=== PATIENT | female | born 1980 | race Caucasian/White ===

== ENCOUNTER 2024-04-21 15:57 | Observation (INO) ==
--- NOTE | 2024-04-21 16:38 | ED Triage Note ---
Date of Service April 21, 2024 Provider in Triage Author: Justin Lomax. History of Present Illness This patient was briefly evaluated while in triage. An abbreviated physical exam was performed. This patient is a 43-year-old Female who presents to the ED for evaluation of 5 months of left upper abdominal pain, she had blood in her stool and passed a blood clot. Night sweats. Abd pelvis CT last year. Physical Exam CONSTITUTIONAL: uncomfortable appearing, nontoxic SKIN: pink, warm, dry CARDIAC: regular rate and rhythm RESPIRATORY: in no respiratory distress, lungs clear to auscultation ABDOMEN: diffuse tenderness worse on left than right Initial orders for labs and / or imaging were placed and patient was placed in the waiting area until a bed is available. Please see further documentation for the full ED course. Patient agreeable with premedication for hives to IV contrast
[2024-04-21] MEDS: SODIUM CHLORIDE 0.9% 1,000 ML IV STA (18:21)
[2024-04-21] MEDS: methylPREDNISolone 125 MG/2 ML VIAL IV ONE (18:21)
[2024-04-21] MEDS: diphenhydrAMINE 50 MG/ML VIAL IV ONE (18:21)
[2024-04-21 18:27] LABS: Basophils # (auto) 0.02 K/uL (0.00-0.20); Basophils % (auto) 0.5 %; Eosinophils # (auto) 0.28 K/uL (0.00-0.50); Eosinophils % (auto) 7.3 %; Hematocrit (blood only) 38.4 % (37.0-47.0); Hemoglobin 12.8 g/dl (12.0-16.0); Lymphocytes # (auto) 1.44 K/uL (1.20-3.40); Lymphocytes % (auto) 37.3 %; Mean Corpuscular Hemoglobin 32.6 pg (25.0-34.0); Mean Corpuscular Hgb Conc 33.3 g/dL (32.0-36.0); Mean Corpuscular Volume 97.7 fL (80.0-100.0); Mean Platelet Volume 9.7 fL (9.4-12.4); Monocytes # (auto) 0.29 K/uL (0.11-0.59); Monocytes % (auto) 7.5 %; Neutrophils # (auto) 1.83 K/uL (1.40-6.50); Neutrophils % (auto) 47.4 %; Platelet Count 158 K/uL (130-400); RDW Coefficient of Variation 12.7 % (11.5-14.5); RDW Standard Deviation 45.9 fL (36.4-46.3); Red Blood Count 3.93 M/uL (4.20-5.40); White Blood Count 3.86 K/ul (4.8-10.8)
[2024-04-21 18:32] LABS: Appearance Urine Clear (Clear); Bilirubin Urine Negative (Negative); Blood Urine Negative (Negative); Color Urine Yellow; Glucose Urine UA Negative (Negative); Ketones Urine Negative (Negative); Leukocyte Esterase Urine Negative (Negative); Nitrite Urine Negative (Negative); Protein Urine Negative (Negative); Specific Gravity Urine 1.012 (1.000-1.030); Urobilinogen Urine Negative (Negative)
[2024-04-21 18:43] LABS: Alanine Aminotransferase 16 U/L (7-52); Albumin Globulin Ratio 1.6 (0.9-2); Albumin Level 3.9 gm/dl (3.4-5.0); Alkaline Phosphatase 59 U/L (34-104); Anion Gap 2 (3-11); Aspartate Aminotransferase 18 U/L (13-39); Bilirubin,Total 0.3 mg/dl (0.2-1.0); Blood Urea Nitrogen 14 mg/dl (6-23); Carbon Dioxide 28 mmol/L (21-32); Chloride 109 mmol/L (98-107); Est GFR (African American) 131.4 ml/min; Est GFR (Non-African American) 113.4 ml/min; Globulin 2.5 gm/dl (2.5-4.0); Glucose 90 mg/dl (70-99(Fasting)); Lipase 25 U/L (11-82); Sodium 139 mmol/L (136-145); Total Protein 6.4 gm/dl (6.0-8.3)
[2024-04-21] MEDS: OPTIRAY 320 100ml IV ONE (19:15)
[2024-04-21] MEDS: SODIUM CHLORIDE 0.9% 1,000 ML IV ONE (19:33)
[2024-04-21] MEDS: PROCHLORPERAZINE 1 ML IV ONE (19:34)
[2024-04-21] MEDS: fentaNYL citrate PF 100 MCG/2 ML VIAL IV STA (19:38)
--- NOTE | 2024-04-21 19:44 | Emergency Department Note ---
Impression & Plan Abdominal pain, AMS (altered mental status) ED Provider Note HISTORY OF PRESENT ILLNESS: Patient is a 43-year-old female presenting with left flank pain. Patient reports that she has been having abdominal pain for the last 6 months. Reports has been worse in the last 3 months. States that today she had an episode of having a bowel movement in which she passed a very large clot. Reports that she then had bright red blood in her stool afterwards. She reports she supposed to follow-up with gastroenterology and was supposed to obtain a endoscope and colonoscopy in September 2023, but she "did not get around to doing it." She states she is been feeling very rundown. Reports having night sweats for the last 6 months. Denies any nausea or vomiting. Denies any notable fevers. Denies any dysuria or hematuria. ROS: as above PHYSICAL EXAM: Constitutional: Patient appears in no acute distress. HENT: Head: Normocephalic and atraumatic. Eyes: EOMI, PERRL Mouth/Throat: Mucous membranes moist. Neck: Trachea midline. Neck supple. Cardiovascular: RRR, No murmurs, rubs or gallops. Intact distal pulses. Pulmonary/Chest: No respiratory distress. Breath sounds clear and equal bilaterally. No wheezes or rales. Abdominal: Abdomen soft, no tenderness, rebound or guarding. Diffuse tenderness to palpation Musculoskeletal: No edema, tenderness or deformity noted. Skin: Warm and dry. No rash, erythema, pallor or cyanosis Psychiatric: Appropriate mood and affect for situation. Neurological: Alert and keenly responsive. CN II-XII grossly intact, moving all extremities equally and fully. MDM: - Vitals signs showed hypotension - History obtained via patient. History as above. - Chronic conditions affecting care: GERD; bipolar 1 disorder - Differential diagnoses include, but are not limited to: colitis; diverticulitis; bowel obstruction; UTI; ureteral stone - Order placed for continuous cardiac monitoring. At this time, monitor showed rate of 80 bpm with normal sinus rhythm, per my interpretation. - External medical records reviewed. Colonoscopy dated 05/31/2021 was reviewed. Patient had nonbleeding internal hemorrhoids at that time. - EKG interpreted by myself showed normal sinus rhythm. Rate 69 bpm. QT 378. No acute ischemic changes - Laboratory workup interpreted by myself showed leukopenia (WBC 3.86); normal electrolytes; normal lipase; negative Lyme disease; normal liver function - UA negative for infection - UDS positive for amphetamines and benzos. - Patient initially given 1L NS, 50 mg IV benadryl and 40 mg IV solumedrol for her IV contrast allergy. - CT abdomen/pelvis with IV contrast noted to have fluid-filled loops of small bowel within the pelvis consistent with an enteritis. - Patient given 5 mg IV compazine and 50 mcg IV fentanyl for nausea and pain control. - On reassessment, patient is hypotensive and lethargic. Pupils appear pinpoint on examination. Her fentanyl dosing was over 2 hours ago on reassessment. Her pupils are pinpoint. She is given 0.4 mg IV Narcan with slight improvement in her mental status - On reassessment at 2215, patient still very lethargic and difficult to arouse. She has pinpoint pupils again and was given another 0.4 mg of Narcan. Patient has not had any visitors in the emergency department who could be giving her anything. Unclear reason why she is so lethargic and difficult to arouse. Given that she is still hypotensive and confused, will admit to hospitalist service. - Discussion was had with watch caser about patient's case and need for admission - Hospitalist, Dr. Jain, consulted for admission - Patient admitted to [facility] hospitalist service for further evaluation and management. ASSESSMENT AND PLAN: Diagnosis: Abdominal pain; altered mental status Plan: admit Past Med/Surg History Problem List (Updated 04/21/24 @ 22:19 by Joelle Perales MD) AMS (altered mental status) (Acute) Abdominal pain (Acute) COVID-19 (Acute) Bipolar 1 disorder Hidradenitis suppurativa Mass in rectum Left sided abdominal pain Rectal bleeding GERD (gastroesophageal reflux disease) Encounter for pre-operative examination Dysphagia Medical History Fibromyalgia Intermittent urinary incontinence Bulging lumbar disc History of colon polyps Dysphagia Poor appetite Weight gain 15 lb wt gain over 1.5 mo Bloating IBS (irritable bowel syndrome) Beth's thyroiditis ADD (attention deficit disorder) PTSD (post-traumatic stress disorder) Bipolar disorder Anxiety and depression Migraines History of palpitations no hx cardiac workup; states "have not had in a while" Lung nodule incidental finding; scheduled to see Rambo Gutierrez 07/28/21 Surgical History History of wisdom tooth extraction History of cholecystectomy History of appendectomy History of esophagogastroduodenoscopy (EGD) History of colonoscopy History of unilateral salpingectomy Left side 2019 and Right side 2019 History of hysterectomy Family History Other No family history of adverse response to anesthesia Social History Smoking Status: Current every day smoker Tobacco Type: Cigarettes Second Hand Exposure: No; Do You Dip or Chew Tobacco: No; Hx Alcohol Use: No Hx Substance Use: No Preferred Language: Uzbek Communication Ability: Effective Billet Checker Required: No Beliefs That Will Affect Care: None Current Living Situation: Family and Significant Other Current Living Situation Comment: Lives with fiance and 4 daughters Feels Safe at Home: Yes Assistive Devices: Glasses Allergies Allergies Allergy/AdvReac Type Severity Reaction Status Date / Time ketorolac [From Toradol] Allergy Severe Rash/ Verified 04/26/23 18:02 Stomach Cramps Iodinated Contrast Media Allergy Intermediate Hives Unverified 04/26/23 18:02 levofloxacin [From Levaquin] Allergy Intermediate Rash/ Verified 04/26/23 18:02 Itching vancomycin Allergy Intermediate Rash/ Verified 04/26/23 18:02 Itching ondansetron [From Zofran] AdvReac Severe Stomach Verified 04/26/23 18:02 Cramps cephalexin [From Keflex] AdvReac Intermediate "Pain Verified 04/26/23 18:02 Throughout Whole Body" prednisone AdvReac Intermediate "Heart Verified 04/26/23 18:02 Racing" sulfamethoxazole AdvReac Intermediate "Pain Verified 04/26/23 18:02 [From Bactrim] Throughout Whole Body" trimethoprim [From Bactrim] AdvReac Intermediate "Pain Verified 04/26/23 18:02 Throughout Whole Body" Home Meds Home Medications Medication Instructions Recorded Confirmed cholecalciferol (vitamin D3) 125 125 mcg PO QAM 04/18/21 04/26/23 mcg (5,000 unit) tablet (Vitamin D3) ibuprofen 200 mg tablet 600 mg PO Q6H PRN Pain 04/18/21 04/26/23 liothyronine 5 mcg tablet 5 mcg PO QAM 04/18/21 04/26/23 methylphenidate HCl 20 mg tablet 20 mg PO TID 05/25/21 04/26/23 zolpidem 10 mg tablet (Ambien) 10 mg PO HS 05/25/21 04/26/23 linaclotide 145 mcg capsule 145 mcg PO QAM PRN IBS 07/27/21 04/26/23 (Linzess) pantoprazole 40 mg tablet,delayed 40 mg PO BID PRN Acid Reflux 12/14/21 04/26/23 release alprazolam 1 mg tablet 1 mg PO TID PRN Anxiety 04/26/23 04/26/23 levothyroxine 125 mcg tablet 125 mcg PO QAM 04/26/23 04/26/23 spironolactone 50 mg tablet 50 mg PO HS 04/26/23 04/26/23 valacyclovir 1 gram tablet 1,000 mg PO BID 04/26/23 04/21/24 Results & Data (ED) Vital Signs Vital Signs - 24 hr 04/21/24 16:34 04/21/24 18:13 04/21/24 18:13 Temperature 36.6 C Temperature Source Temporal Artery Scan Pulse Rate 89 77 Pulse Rate [Apical] 77 Pulse Rhythm Regular Pulse Strength Normal Respiratory Rate 18 12 12 Respiratory Effort / Characteristics Non-Labored Respiratory Depth Normal Respiratory Pattern Regular Blood Pressure 110/77 Blood Pressure [Right Arm] 98/69 L Blood Pressure Mean 88 Blood Pressure Mean [Right Arm] 78 Pulse Oximetry 98 100 100 Oxygen Delivery Method Room Air Room Air Room Air Sepsis Recent Fever Within 48 Hours No Sepsis New/Unexplained Change in Mental Status No Sepsis Action Taken by Nursing No Action Required 04/21/24 18:14 04/21/24 21:59 Temperature Temperature Source Pulse Rate 73 80 Pulse Rate [Apical] Pulse Rhythm Pulse Strength Respiratory Rate Respiratory Effort / Characteristics Respiratory Depth Respiratory Pattern Blood Pressure Blood Pressure [Right Arm] Blood Pressure Mean Blood Pressure Mean [Right Arm] Pulse Oximetry Oxygen Delivery Method Sepsis Recent Fever Within 48 Hours Sepsis New/Unexplained Change in Mental Status Sepsis Action Taken by Nursing Laboratory Data 04/21/24 18:00 04/21/24 18:00 Lab Results 04/21/24 04/21/24 04/21/24 Range/Units 18:00 18:20 20:28 WBC 3.86 L (4.8-10.8) K/ul RBC 3.93 L (4.20-5.40) M/uL Hgb 12.8 (12.0-16.0) g/dl Hct 38.4 (37.0-47.0) % MCV 97.7 (80.0-100.0) fL MCH 32.6 (25.0-34.0) pg MCHC 33.3 (32.0-36.0) g/dL RDW Std Deviation 45.9 (36.4-46.3) fL RDW Coeff of Dorothy 12.7 (11.5-14.5) % Plt Count 158 (130-400) K/uL MPV 9.7 (9.4-12.4) fL Immature Gran % (Auto) 0.0 % Neut % (Auto) 47.4 % Lymph % (Auto) 37.3 % [place] % (Auto) 7.5 % Eos % (Auto) 7.3 % Baso % (Auto) 0.5 % Neut # (Auto) 1.83 (1.40-6.50) K/uL Lymph # (Auto) 1.44 (1.20-3.40) K/uL [place] # (Auto) 0.29 (0.11-0.59) K/uL Eos # (Auto) 0.28 (0.00-0.50) K/uL Baso # (Auto) 0.02 (0.00-0.20) K/uL Immature Gran # (Auto) 0.00 L (0.01-0.20) K/uL Sodium 139 (136-145) mmol/L Potassium 4.0 (3.5-5.1) mmol/L Chloride 109 H (98-107) mmol/L Carbon Dioxide 28 (21-32) mmol/L Anion Gap 2 L (3-11) BUN 14 (6-23) mg/dl Creatinine 0.56 L (0.6-1.2) mg/dl Est Cr Clr Drug Dosing Not Reportable Est GFR ( Amer) 131.4 ml/min Est GFR (Non-Af Amer) 113.4 ml/min BUN/Creatinine Ratio 25.0 H (10-20) Glucose 90 (70-99(Fasting)) mg/dl POC Glucose 94 (70-99) mg/dl Calcium 9.0 (8.6-10.3) mg/dl Total Bilirubin 0.3 (0.2-1.0) mg/dl AST 18 (13-39) U/L ALT 16 (7-52) U/L Alkaline Phosphatase 59 (34-104) U/L Total Protein 6.4 (6.0-8.3) gm/dl Albumin 3.9 (3.4-5.0) gm/dl Globulin 2.5 (2.5-4.0) gm/dl Albumin/Globulin Ratio 1.6 (0.9-2) Lipase 25 (11-82) U/L Urine Color Yellow Urine Appearance Clear (Clear) Urine pH 6.0 (4.5-7.5) Ur Specific Alfred 1.012 (1.000-1.030) Urine Protein Negative (Negative) Urine Glucose (UA) Negative (Negative) Urine Ketones Negative (Negative) Urine Blood Negative (Negative) Urine Nitrite Negative (Negative) Urine Bilirubin Negative (Negative) Urine Urobilinogen Negative (Negative) Ur Leukocyte Esterase Negative (Negative) Urine Opiates Screen Neg (Neg) Ur Methadone, Qual Neg (Neg) Urine Fentanyl Screen Neg (Neg) Urine Barbiturates Neg (Neg) Ur Phencyclidine (PCP) Neg (Neg) U Amphetamin/Meth Scrn Pos H (Neg) MDMA (Ecstasy) Screen Neg (Neg) U Benzodiazepines Scrn Pos H (Neg) Ur Cocaine Metabolite Neg (Neg) U Marijuana (THC) Screen Neg (Neg) Lyme Disease Screen Negative (Negative) Administered Medications Discontinued Medications Diphenhydramine HCl (Diphenhydramine 50 Mg/Ml Vial) 50 mg IV ONE ONE Stop: 04/21/24 16:44 Last Admin: 04/21/24 18:21 Dose: 50 mg Documented By: BRANT Fentanyl Citrate (Fentanyl Citrate Pf 100 Mcg/2 Ml Vial) 50 mcg IV NOW STA Stop: 04/21/24 18:52 Last Admin: 04/21/24 19:38 Dose: 50 mcg Documented By: AICHA Sodium Chloride (Nss) 1,000 mls @ 999 mls/hr IV .Q1H1M STA Stop: 04/21/24 17:43 Last Infusion: 04/21/24 19:25 Dose: Infused Documented By: Admin: 04/21/24 18:21 Dose: 999 mls/hr Documented By: BRANT Sodium Chloride (Nss) 1,000 mls @ 999 mls/hr IV .Q1H1M ONE Stop: 04/21/24 19:51 Last Infusion: 04/21/24 21:57 Dose: Infused Documented By: Admin: 04/21/24 19:33 Dose: 999 mls/hr Documented By: AICHA Prochlorperazine (Compazine) 1 mls @ 1 mls/min IV ONE ONE Stop: 04/21/24 18:53 Last Admin: 04/21/24 19:34 Dose: 1 mls/min Documented By: AICHA Ioversol (Optiray 320 100ml) 91 ml IV ONCE ONE Stop: 04/21/24 19:15 Last Admin: 04/21/24 19:15 Dose: 91 ml Documented By: NOEL Methylprednisolone (Methylprednisolone 125 Mg/2 Ml Vial) 40 mg IV NOW ONE Stop: 04/21/24 16:44 Last Admin: 04/21/24 18:21 Dose: 40 mg Documented By: BRANT Naloxone HCl (Naloxone Hcl 0.4 Mg/1 Ml Vial/Carp) 0.4 mg IV NOW STA Stop: 04/21/24 20:14 Last Admin: 04/21/24 20:16 Dose: 0.4 mg Documented By: NIMA Naloxone HCl (Naloxone Hcl 0.4 Mg/1 Ml Vial/Carp) 0.4 mg IV NOW STA Stop: 04/21/24 22:17 Last Admin: 04/21/24 22:19 Dose: 0.4 mg Documented By: NIMA Imaging Data Radiologist's Impression: Abdomen/Pelvis CT 04/21/24 16:41 Exam(s): CT ABDOMEN + PELVIS With Contrast IV Amt: 91ml optiray 320 EXAM: CT Abdomen and Pelvis With Intravenous Contrast CLINICAL HISTORY: Reason for exam: left upper abd pain passing blood clots per rectum. TECHNIQUE: Axial computed tomography images of the abdomen and pelvis with intravenous contrast. CTDI is 12 mGy and DLP is 585 mGy-cm. Automated exposure control was utilized for the study. A dose lowering technique was utilized adhering to the principles of ALARA. CONTRAST: Patient received 91ml optiray 320 of IV contrast COMPARISON: 06/03/2023 FINDINGS: Lung bases: Unremarkable. No mass. No consolidation. ABDOMEN: Liver: Moderate periportal edema. Gallbladder and bile ducts: Postoperative changes prior cholecystectomy. No ductal dilation. Pancreas: Unremarkable. No mass. No ductal dilation. Spleen: Splenomegaly. Adrenals: Unremarkable. No mass. Kidneys and ureters: Both kidneys opacify with and excrete contrast in a normal symmetric fashion. . Stomach and bowel: There is fluid-filled loops of small bowel within the pelvis with hyperemic mural enhancement. No obstruction. No mucosal thickening. PELVIS: Appendix: No findings to suggest acute appendicitis. Bladder: Unremarkable. No mass. Reproductive: Unremarkable as visualized. ABDOMEN and PELVIS: Intraperitoneal space: Unremarkable. No free air. No significant fluid collection. Bones/joints: No acute fracture. No dislocation. Soft tissues: See above. Vasculature: Dilatation of the main portal vein suggesting portal hypertension. Lymph nodes: Unremarkable. No enlarged lymph nodes. IMPRESSION: Fluid-filled loops of small bowel within the pelvis with hyperemic mural enhancement. Findings may is enteritis in the appropriate clinical setting. Electronically signed by: Wallace Rhodes MD 04/21/24 20:36 PM Discharge Plan Visit Data Chief Complaint: Abdominal Pain ED Provider: Joelle Perales Discharge Problem: Abdominal pain, AMS (altered mental status) Forms Stand Alone Forms: Mitro Prescriptions Prescriptions: No Action liothyronine 5 mcg tablet 5 mcg PO QAM Rx Instructions: take with Levothyroxine ibuprofen 200 mg Tablet 600 mg PO Q6H PRN (Reason: Pain) cholecalciferol (vitamin D3) [Vitamin D3] 125 mcg (5,000 unit) Tablet 125 mcg PO QAM methylphenidate HCl 20 mg Tablet 20 mg PO TID zolpidem [Ambien] 10 mg Tablet 10 mg PO HS Linzess 145 mcg capsule 145 mcg PO QAM PRN (Reason: IBS) pantoprazole 40 mg tablet,delayed release (DR/EC) 40 mg PO BID PRN (Reason: Acid Reflux) Rx Instructions: TAKE 1 TABLET BY MOUTH TWICE A DAY alprazolam 1 mg tablet 1 mg PO TID PRN (Reason: Anxiety) valacyclovir 1 gram tablet 1,000 mg PO BID Rx Instructions: ordered 04/18/24 take for 10 days levothyroxine 125 mcg tablet 125 mcg PO QAM spironolactone 50 mg tablet 50 mg PO HS Referrals Referrals: Collin Mercado MD [Primary Care Provider] -
[2024-04-21] MEDS: NALOXONE HCL 0.4 MG/1 ML VIAL/CARP IV STA ×2 (20:16→22:19)
--- NOTE | 2024-04-21 20:36 | CT Scan Report ---
Exam(s): CT ABDOMEN + PELVIS With Contrast IV Amt: 91ml optiray 320 EXAM: CT Abdomen and Pelvis With Intravenous Contrast CLINICAL HISTORY: Reason for exam: left upper abd pain passing blood clots per rectum. TECHNIQUE: Axial computed tomography images of the abdomen and pelvis with intravenous contrast. CTDI is 12 mGy and DLP is 585 mGy-cm. Automated exposure control was utilized for the study. A dose lowering technique was utilized adhering to the principles of ALARA. CONTRAST: Patient received 91ml optiray 320 of IV contrast COMPARISON: 06/03/2023 FINDINGS: Lung bases: Unremarkable. No mass. No consolidation. ABDOMEN: Liver: Moderate periportal edema. Gallbladder and bile ducts: Postoperative changes prior cholecystectomy. No ductal dilation. Pancreas: Unremarkable. No mass. No ductal dilation. Spleen: Splenomegaly. Adrenals: Unremarkable. No mass. Kidneys and ureters: Both kidneys opacify with and excrete contrast in a normal symmetric fashion. . Stomach and bowel: There is fluid-filled loops of small bowel within the pelvis with hyperemic mural enhancement. No obstruction. No mucosal thickening. PELVIS: Appendix: No findings to suggest acute appendicitis. Bladder: Unremarkable. No mass. Reproductive: Unremarkable as visualized. ABDOMEN and PELVIS: Intraperitoneal space: Unremarkable. No free air. No significant fluid collection. Bones/joints: No acute fracture. No dislocation. Soft tissues: See above. Vasculature: Dilatation of the main portal vein suggesting portal hypertension. Lymph nodes: Unremarkable. No enlarged lymph nodes. IMPRESSION: Fluid-filled loops of small bowel within the pelvis with hyperemic mural enhancement. Findings may is enteritis in the appropriate clinical setting. Electronically signed by: Wallace Rhodes MD 04/21/24 20:36 PM
[2024-04-21 22:20] LABS: Amphetamines+Metham, Urine Pos (Neg); Barbiturates, Urine Neg (Neg); Benzodiazepine, Urine Pos (Neg); Cocaine, Urine Neg (Neg); Fentanyl, Urine Neg (Neg); MDMA (Ecstacy), Urine Neg (Neg); Marijuana, Urine Neg (Neg); Methadone, Urine Neg (Neg); Opiate, Urine Neg (Neg); Phencyclidine, Urine Neg (Neg)
--- NOTE | 2024-04-22 01:21 | History & Physical Report ---
Date of Service April 22, 2024 Assessment & Plan (1) AMS (altered mental status): Plan: 43-year-old female with past medical history significant for hypothyroidism, history of nausea vomiting, history of colitis, GERD, history of leukopenia, history of thrombocytopenia, history of anemia, history of anxiety, history of cervical cancer as per records in [facility] comes because of abdominal pain, patient says going on for last 1 year on the left side radiating to the ribs. Seems to got worse lately. In the ER she was given IV Compazine and IV fentanyl and also given IV Benadryl 50 mg and IV Solu-Medrol 40 mg for contrast allergy for CAT scan and patient became lethargic and hypotensive. Pupils were pinpoint. She received couple dose of Narcan. Patient Still somewhat drowsy. When asked she is alert and oriented x 3. States has abdominal pain. States has on and off some chest tightness. Some on and off shortness of breath. states has headache. states has nausea. speaking very low volume and difficult to understand. Goes back to sleep. Could not get much history from the patient currently. As per ER notes patient also complained of blood clot in the stools And also seems having night sweats. Urine drug screen came positive for for methamphetamines and when asked about it patient states she is on Ritalin and denies any drug use. altered mental status most likely drug-induced will check ABG and CT head IV fluids monitoring telemetry abdominal pain seems chronic CT scan showing possible enteritis questionable GI bleed will check stool for Hemoccult n.p.o., IV fluids IV Protonix 40 mg twice daily GI consult in a.m. for further recommendations hypothyroidism continue home meds anxiety needs to get full past medical history when patient is more awake Home meds seems recently started on valacyclovir. DVT prophylaxis SCDs for now disposition telemetry full code History of Present Illness Chief Complaint: abdominal pain and drowsiness Primary Care Provider: Collin Mercado 43-year-old female with past medical history significant for hypothyroidism, history of nausea vomiting, history of colitis, GERD, history of leukopenia, history of thrombocytopenia, history of anemia, history of anxiety, history of cervical cancer as per records in [facility] comes because of abdominal pain, patient says going on for last 1 year on the left side radiating to the ribs. Seems to got worse lately. In the ER she was given IV Compazine and IV fentanyl and also given IV Benadryl 50 mg and IV Solu-Medrol 40 mg for contrast allergy for CAT scan and patient became lethargic and hypotensive. Pupils were pinpoint. She received couple dose of Narcan. Patient Still somewhat drowsy. When asked she is alert and oriented x 3. States has abdominal pain. States has on and off some chest tightness. Some on and off shortness of breath. states has headache. states has nausea. speaking very low volume and difficult to understand. Goes back to sleep. Could not get much history from the patient currently. As per ER notes patient also complained of blood clot in the stools And also seems having night sweats. Urine drug screen came positive for for methamphetamines and when asked about it patient states she is on Ri caty and denies any drug use. Past medical history. As mentioned above. Past surgical history as per [facility]. Endoscopy of bowel pouch with biopsy. Sigmoidoscopy. Laparoscopic cholecystectomy. Partial hysterectomy. Social history. Smokes half pack a day for 15 years. Alcohol social drinking as per [facility]. No drug use. Family history. Father has A-fib. Mother has MS. Allergies Allergy/AdvReac Type Severity Reaction Status Date / Time ketorolac [From Toradol] Allergy Severe Rash/ Verified 04/26/23 18:02 Stomach Cramps Iodinated Contrast Media Allergy Intermediate Hives Unverified 04/26/23 18:02 levofloxacin [From Levaquin] Allergy Intermediate Rash/ Verified 04/26/23 18:02 Itching vancomycin Allergy Intermediate Rash/ Verified 04/26/23 18:02 Itching bee pollen Allergy Flushing Verified 04/22/24 07:49 ondansetron [From Zofran] AdvReac Severe Stomach Verified 04/26/23 18:02 Cramps cephalexin [From Keflex] AdvReac Intermediate "Pain Verified 04/26/23 18:02 Throughout Whole Body" prednisone AdvReac Intermediate "Heart Verified 04/26/23 18:02 Racing" sulfamethoxazole AdvReac Intermediate "Pain Verified 04/26/23 18:02 [From Bactrim] Throughout Whole Body" trimethoprim [From Bactrim] AdvReac Intermediate "Pain Verified 04/26/23 18:02 Throughout Whole Body" Home Medications Medication Instructions Recorded Confirmed Type liothyronine 5 mcg tablet 5 mcg PO QAM 04/18/21 04/21/24 History methylphenidate HCl 20 mg tablet 20 mg PO TID 05/25/21 04/21/24 History zolpidem 10 mg tablet (Ambien) 10 mg PO HS 05/25/21 04/21/24 History linaclotide 145 mcg capsule 145 mcg PO QAM PRN IBS 07/27/21 04/21/24 History (Linzess) pantoprazole 40 mg tablet,delayed 40 mg PO BID PRN Acid Reflux 12/14/21 04/21/24 History release alprazolam 1 mg tablet 1 mg PO TID PRN Anxiety 04/26/23 04/21/24 History levothyroxine 125 mcg tablet 125 mcg PO QAM 04/26/23 04/21/24 History spironolactone 50 mg tablet 50 mg PO HS 04/26/23 04/21/24 History valacyclovir 1 gram tablet 1,000 mg PO BID 04/26/23 04/21/24 History ropinirole 1 mg tablet 1 mg PO HS 04/21/24 04/21/24 History Tylenol 04/22/24 History Past Med/Surg History Problem List (Updated 04/21/24 @ 22:19 by Joelle Perales MD) AMS (altered mental status) (Acute) Abdominal pain (Acute) COVID-19 (Acute) Bipolar 1 disorder Hidradenitis suppurativa Mass in rectum Left sided abdominal pain Rectal bleeding GERD (gastroesophageal reflux disease) Encounter for pre-operative examination Dysphagia Medical History Fibromyalgia Intermittent urinary incontinence Bulging lumbar disc History of colon polyps Dysphagia Poor appetite Weight gain 15 lb wt gain over 1.5 mo Bloating IBS (irritable bowel syndrome) Beth's thyroiditis ADD (attention deficit disorder) PTSD (post-traumatic stress disorder) Bipolar disorder Anxiety and depression Migraines History of palpitations no hx cardiac workup; states "have not had in a while" Lung nodule incidental finding; scheduled to see Rambo Gutierrez 07/28/21 Surgical History History of wisdom tooth extraction History of cholecystectomy History of appendectomy History of esophagogastroduodenoscopy (EGD) History of colonoscopy History of unilateral salpingectomy Left side 2019 and Right side 2019 History of hysterectomy Family History Other No family history of adverse response to anesthesia Social History Smoking Status: Current every day smoker Tobacco Type: Cigarettes Second Hand Exposure: No; Do You Dip or Chew Tobacco: No; Tobacco Cessation Education Requested by Patient: No Hx Alcohol Use: Yes Hx Substance Use: Yes Preferred Language: Czech Communication Ability: Effective Inventory Control Manager Required: No Beliefs That Will Affect Care: None Current Living Situation: Significant Other Current Living Situation Comment: Lives with fiance and 4 daughters Other Information That Helps Us Care for You: No Feels Safe at Home: Yes Safety Concerns: Feels Safe At This Time Assistive Devices: None Review of Systems Review of Systems: Unobtainable due to reduced consciousness Physical Exam Physical Exam: General- Drowsy Head- atraumatic Eyes- PERRL. ENT- oropharynx dry Neck- supple, no JVD. Lungs- clear to auscultation no wheezing or crackles. Heart- regular rate and rhythm; no murmur, no gallop. Abdomen- normal bowel sounds, soft, nontender, no distension Extremities- no pretibial edema, no erythema seen Neuro- alert, oriented x 3; PERRL,; no facial palsy; no dysarthria; Results & Data Results & Data Vital Signs (Past 12 Hours) Vital Signs Temp Pulse Pulse Resp BP BP Pulse Ox 04/22/24 00:09 67 18 101/71 97 04/21/24 23:42 65 17 93/71 L 96 04/21/24 23:35 94/66 L 04/21/24 23:35 94/66 L 04/21/24 23:30 98/75 L 04/21/24 23:24 66 13 91/71 L 98 04/21/24 23:09 58 L 13 94/70 L 100 04/21/24 22:36 76 14 109/80 95 04/21/24 22:24 36.6 C 75 13 98/73 L 96 04/21/24 21:59 80 04/21/24 18:14 73 04/21/24 18:13 77 12 100 04/21/24 18:13 77 12 98/69 L 100 04/21/24 16:34 36.6 C 89 18 110/77 98 O2 Del Method 04/22/24 00:09 Room Air 04/21/24 23:42 Room Air 04/21/24 23:35 04/21/24 23:35 04/21/24 23:30 04/21/24 23:24 Room Air 04/21/24 23:09 Room Air 04/21/24 22:36 Room Air 04/21/24 22:24 Room Air 04/21/24 21:59 04/21/24 18:14 04/21/24 18:13 Room Air 04/21/24 18:13 Room Air 04/21/24 16:34 Room Air Diagnostic Findings Laboratory Results WBC 3.86 K/ul (4.8-10.8) L 04/21/24 18:00 RBC 3.93 M/uL (4.20-5.40) L 04/21/24 18:00 Hgb 12.8 g/dl (12.0-16.0) 04/21/24 18:00 Hct 38.4 % (37.0-47.0) 04/21/24 18:00 MCV 97.7 fL (80.0-100.0) 04/21/24 18:00 MCH 32.6 pg (25.0-34.0) 04/21/24 18:00 MCHC 33.3 g/dL (32.0-36.0) 04/21/24 18:00 RDW Std Deviation 45.9 fL (36.4-46.3) 04/21/24 18:00 RDW Coeff of Dorothy 12.7 % (11.5-14.5) 04/21/24 18:00 Plt Count 158 K/uL (130-400) 04/21/24 18:00 MPV 9.7 fL (9.4-12.4) 04/21/24 18:00 Immature Gran % (Auto) 0.0 % 04/21/24 18:00 Neut % (Auto) 47.4 % 04/21/24 18:00 Lymph % (Auto) 37.3 % 04/21/24 18:00 [place] % (Auto) 7.5 % 04/21/24 18:00 Eos % (Auto) 7.3 % 04/21/24 18:00 Baso % (Auto) 0.5 % 04/21/24 18:00 Neut # (Auto) 1.83 K/uL (1.40-6.50) 04/21/24 18:00 Lymph # (Auto) 1.44 K/uL (1.20-3.40) 04/21/24 18:00 [place] # (Auto) 0.29 K/uL (0.11-0.59) 04/21/24 18:00 Eos # (Auto) 0.28 K/uL (0.00-0.50) 04/21/24 18:00 Baso # (Auto) 0.02 K/uL (0.00-0.20) 04/21/24 18:00 Immature Gran # (Auto) 0.00 K/uL (0.01-0.20) L 04/21/24 18:00 Sodium 139 mmol/L (136-145) 04/21/24 18:00 Potassium 4.0 mmol/L (3.5-5.1) 04/21/24 18:00 Chloride 109 mmol/L (98-107) H 04/21/24 18:00 Carbon Dioxide 28 mmol/L (21-32) 04/21/24 18:00 Anion Gap 2 (3-11) L 04/21/24 18:00 BUN 14 mg/dl (6-23) 04/21/24 18:00 Creatinine 0.56 mg/dl (0.6-1.2) L 04/21/24 18:00 Est Cr Clr Drug Dosing Not Reportable 04/21/24 18:00 Est GFR ( Amer) 131.4 ml/min 04/21/24 18:00 Est GFR (Non-Af Amer) 113.4 ml/min 04/21/24 18:00 BUN/Creatinine Ratio 25.0 (10-20) H 04/21/24 18:00 Glucose 90 mg/dl (70-99(Fasting)) 04/21/24 18:00 POC Glucose 94 mg/dl (70-99) 04/21/24 20:28 Calcium 9.0 mg/dl (8.6-10.3) 04/21/24 18:00 Total Bilirubin 0.3 mg/dl (0.2-1.0) 04/21/24 18:00 AST 18 U/L (13-39) 04/21/24 18:00 ALT 16 U/L (7-52) 04/21/24 18:00 Alkaline Phosphatase 59 U/L (34-104) 04/21/24 18:00 Total Protein 6.4 gm/dl (6.0-8.3) 04/21/24 18:00 Albumin 3.9 gm/dl (3.4-5.0) 04/21/24 18:00 Globulin 2.5 gm/dl (2.5-4.0) 04/21/24 18:00 Albumin/Globulin Ratio 1.6 (0.9-2) 04/21/24 18:00 Lipase 25 U/L (11-82) 04/21/24 18:00 Urine Color Yellow 04/21/24 18:20 Urine Appearance Clear (Clear) 04/21/24 18:20 Urine pH 6.0 (4.5-7.5) 04/21/24 18:20 Ur Specific [place] 1.012 (1.000-1.030) 04/21/24 18:20 Urine Protein Negative (Negative) 04/21/24 18:20 Urine Glucose (UA) Negative (Negative) 04/21/24 18:20 Urine Ketones Negative (Negative) 04/21/24 18:20 Urine Blood Negative (Negative) 04/21/24 18:20 Urine Nitrite Negative (Negative) 04/21/24 18:20 Urine Bilirubin Negative (Negative) 04/21/24 18:20 Urine Urobilinogen Negative (Negative) 04/21/24 18:20 Ur Leukocyte Esterase Negative (Negative) 04/21/24 18:20 Urine Opiates Screen Neg (Neg) 04/21/24 18:20 Ur Methadone, Qual Neg (Neg) 04/21/24 18:20 Urine Fentanyl Screen Neg (Neg) 04/21/24 18:20 Urine Barbiturates Neg (Neg) 04/21/24 18:20 Ur Phencyclidine (PCP) Neg (Neg) 04/21/24 18:20 U Amphetamin/Meth Scrn Pos (Neg) H 04/21/24 18:20 MDMA (Ecstasy) Screen Neg (Neg) 04/21/24 18:20 U Benzodiazepines Scrn Pos (Neg) H 04/21/24 18:20 Ur Cocaine Metabolite Neg (Neg) 04/21/24 18:20 U Marijuana (THC) Screen Neg (Neg) 04/21/24 18:20 Lyme Disease Screen Negative (Negative) 04/21/24 18:00 Impressions Abdomen/Pelvis CT 04/21/24 16:41 Exam(s): CT ABDOMEN + PELVIS With Contrast IV Amt: 91ml optiray 320 EXAM: CT Abdomen and Pelvis With Intravenous Contrast CLINICAL HISTORY: Reason for exam: left upper abd pain passing blood clots per rectum. TECHNIQUE: Axial computed tomography images of the abdomen and pelvis with intravenous contrast. CTDI is 12 mGy and DLP is 585 mGy-cm. Automated exposure control was utilized for the study. A dose lowering technique was utilized adhering to the principles of ALARA. CONTRAST: Patient received 91ml optiray 320 of IV contrast COMPARISON: 06/03/2023 FINDINGS: Lung bases: Unremarkable. No mass. No consolidation. ABDOMEN: Liver: Moderate periportal edema. Gallbladder and bile ducts: Postoperative changes prior cholecystectomy. No ductal dilation. Pancreas: Unremarkable. No mass. No ductal dilation. Spleen: Splenomegaly. Adrenals: Unremarkable. No mass. Kidneys and ureters: Both kidneys opacify with and excrete contrast in a normal symmetric fashion. . Stomach and bowel: There is fluid-filled loops of small bowel within the pelvis with hyperemic mural enhancement. No obstruction. No mucosal thickening. PELVIS: Appendix: No findings to suggest acute appendicitis. Bladder: Unremarkable. No mass. Reproductive: Unremarkable as visualized. ABDOMEN and PELVIS: Intraperitoneal space: Unremarkable. No free air. No significant fluid collection. Bones/joints: No acute fracture. No dislocation. Soft tissues: See above. Vasculature: Dilatation of the main portal vein suggesting portal hypertension. Lymph nodes: Unremarkable. No enlarged lymph nodes. IMPRESSION: Fluid-filled loops of small bowel within the pelvis with hyperemic mural enhancement. Findings may is enteritis in the appropriate clinical setting. Electronically signed by: Wallace Rhodes MD 04/21/24 20:36 PM ECG Additional Comments: ECG. Normal sinus rhythm with rate of 69. No significant change was found. QTc 405. Code Status & VTE Plan VTE Prophylaxis Plan VTE Prophylaxis will be ordered: Yes
[2024-04-22] MEDS ORDERED: NITROGLYCERIN SL 0.4 MG/TAB TAB SL PRN (01:38)
[2024-04-22] MEDS ORDERED: LINACLOTIDE 145 MCG CAPSULE PO PRN (01:38)
[2024-04-22] MEDS: SODIUM CHLORIDE 0.9% 1,000 ML IV SCH (02:00)
[2024-04-22 02:36] LABS: Base Excess ABG -3.8 mEq/L (-9-1.8); HCO3 ABG 22 mmol/L (19-24); Oxygen Saturation ABG 97.1 % (90-95); PCO2 ABG 39 mmHg (35-46); PO2 ABG 80 mmHg (80-95); pH ABG 7.35 (7.35-7.45)
[2024-04-22 02:40] LABS: Allen Test Pos (Pos)
--- NOTE | 2024-04-22 03:15 | CT Scan Report ---
Exam(s): CT HEAD Without Contrast EXAM: CT Head Without Intravenous Contrast CLINICAL HISTORY: Reason for exam: AMS. TECHNIQUE: Axial computed tomography images of the head/brain without intravenous contrast. CTDI is 38.03 mGy and DLP is 547.75 mGy-cm. Automated exposure control was utilized for the study. A dose lowering technique was utilized adhering to the principles of ALARA. COMPARISON: 04/26/2023 FINDINGS: Brain: Unremarkable. No hemorrhage. No significant white matter disease. No edema. Ventricles: Unremarkable. No ventriculomegaly. Bones/joints: Unremarkable. No acute fracture. Soft tissues: Unremarkable. Sinuses: Unremarkable as visualized. No acute sinusitis. Mastoid air cells: Unremarkable as visualized. No mastoid effusion. IMPRESSION: Normal head/brain CT. Electronically signed by: Wallace Rhodes MD 04/22/24 03:14 AM
[2024-04-22] MEDS: NALOXONE HCL 0.4 MG/1 ML VIAL/CARP IV STA (03:35)
[2024-04-22] MEDS: LEVOTHYROXINE SODIUM 125 MCG TABLET PO SCH (05:51)
[2024-04-22 06:52] LABS: Basophils # (auto) 0.01 K/uL (0.00-0.20); Basophils % (auto) 0.2 %; Eosinophils # (auto) 0.01 K/uL (0.00-0.50); Eosinophils % (auto) 0.2 %; Hemoglobin 12.9 g/dl (12.0-16.0); Immature Granulocytes # (auto) 0.01 K/uL (0.01-0.20); Immature Granulocytes % (auto) 0.2 %; Lymphocytes # (auto) 0.88 K/uL (1.20-3.40); Lymphocytes % (auto) 19.4 %; Mean Corpuscular Hemoglobin 33.2 pg (25.0-34.0); Mean Corpuscular Hgb Conc 33.9 g/dL (32.0-36.0); Mean Corpuscular Volume 97.9 fL (80.0-100.0); Mean Platelet Volume 10.1 fL (9.4-12.4); Monocytes % (auto) 4.4 %; Neutrophils # (auto) 3.43 K/uL (1.40-6.50); Neutrophils % (auto) 75.6 %; Platelet Count 158 K/uL (130-400); RDW Standard Deviation 46.1 fL (36.4-46.3); Red Blood Count 3.88 M/uL (4.20-5.40); White Blood Count 4.54 K/ul (4.8-10.8)
[2024-04-22 07:09] LABS: Anion Gap 6 (3-11); Blood Urea Nitrogen 12 mg/dl (6-23); Calcium 8.5 mg/dl (8.6-10.3); Carbon Dioxide 22 mmol/L (21-32); Chloride 112 mmol/L (98-107); Est GFR (African American) 136.4 ml/min; Est GFR (Non-African American) 117.7 ml/min; Glucose 114 mg/dl (70-99(Fasting)); Magnesium 1.6 mg/dl (1.7-2.4); Potassium 4.3 mmol/L (3.5-5.1); Sodium 140 mmol/L (136-145)
[2024-04-22] MEDS: LIOTHYRONINE SODIUM 5 MCG TAB PO SCH (07:46)
[2024-04-22] MEDS: PANTOprazole 40 MG in SYRINGE 0 ML IV SCH (07:46)
[2024-04-22] MEDS: METHYLPHENIDATE HCL 10 MG TABLET PO SCH (07:46)
[2024-04-22] MEDS: valACYclovir HCL 500 MG TABLET PO SCH (07:46)
--- NOTE | 2024-04-22 10:21 | Gastrointestinal Consultation ---
Date of Consultation April 22, 2024 Assessment & Plan (1) Abdominal pain: 43 year old female with chronic abd pain, alternating bowel habits, intermittent bloody stools w/ mucous imaging showing fluid filled loops of small bowel w/ hyperemic mural enhancement, concerning for enteritis Arrange stool studies Add fecal calprotectin Clear liquid diet today Consider Bentyl 10 mg three times daily Pending results of stool studies, will discuss timing of endoscopic evaluation She is overdue for a colonoscopy for polyp recall given poor prep in 2020 Thank you for allowing us to participate in the care of this patient. Please call with any acute changes, questions or concerns. Please see addendum below with additional recommendation from my supervising physician. Supervising Physician Co-Signing Physician Notes I examined the patient and reviewed patient's chart , laboratory data and imaging studies. I agree with with assessment and plan of care as suggested by advanced practice provider. The patient has chronic recurrent abdominal pain. The patient indicates that the abdominal symptoms have significantly increased over the last several months. The patient indicates that she has recent onset of rectal bleeding although prior records indicates that she did have rectal bleeding in the past. Currently presents with more abdominal pain and about [address] scan showed diffuse fluid-filled loops of small bowel within the pelvis with hyperemic mural enhancement. Laboratory data are unremarkable. Clinical presentation is suspicious of inflammatory bowel disease although the diffuse pattern of small bowel involvement seen on the CAT scan is not typical for Crohn's disease. Celiac disease or other small bowel etiologies is also possible. Obtain stool studies, results are pending. Scheduled for EGD with duodenal biopsies and colonoscopy with the examination of the terminal ileum for tomorrow. History of Present Illness Reason for Consultation: abd pain, ?rectal bleeding Requesting Physician: Sam Attending Physician: Alda Vargas MD History of Present Illness 43 year old female with history of Bipolar and others below admitted through the ED w/ abd pain - GI asked to evaluate of pain and ?rectal bleeding. Pt was seen and evaluated, chart reviewed. Notes chronic GI symptoms. Has had EGD/Colon x 2. Most recent evaluation was incomplete due to poor prep in 2020. She endorses daily episodes of abdominal pain. Typically left lower quadrant. Pain is sharp, daily. Does acutely worsen with oral intake. Notes that her bowels alternate at baseline. May have constipation with no BM for 2 days. Or episodes of diarrhea w/ 5+ loose stools. There can be intermittent episodes of bleeding. Bright red. No black stools. Does have some mucousy BMs. Denies nausea/vomiting. Notes appetite is often diminished. Weight fluctuates. No fever, chills, CP, SOB. H&H 12.9/38 Lipase 25 Tbili 0.3 AST 18 ALT 16 ALKP 59 + UTox with benzodiazepines and amphetamines CTAP 2023: Fluid-filled loops of small bowel within the pelvis with hyperemic mural enhancement. Findings may is enteritis in the appropriate clinical setting. EGD 2020: - LA Grade A esophagitis. Biopsied. Dilated. - Gastritis. Biopsied. - Normal duodenal bulb and second portion of the duodenum. Colonoscopy 2020: - Preparation of the colon was poor. - Stool in the entire examined colon. Biopsied. - The examined portion of the ileum was normal. Biopsied. - Non-bleeding internal hemorrhoids. No family history of IBD Mom has had polyps and a partial colectomy She has had CCY, appendectomy and a hysterectomy & salpingoophrectomy years ago Allergies Allergy/AdvReac Type Severity Reaction Status Date / Time ketorolac [From Toradol] Allergy Severe Rash/ Verified 04/26/23 18:02 Stomach Cramps Iodinated Contrast Media Allergy Intermediate Hives Unverified 04/26/23 18:02 levofloxacin [From Levaquin] Allergy Intermediate Rash/ Verified 04/26/23 18:02 Itching vancomycin Allergy Intermediate Rash/ Verified 04/26/23 18:02 Itching bee pollen Allergy Flushing Verified 04/22/24 07:49 ondansetron [From Zofran] AdvReac Severe Stomach Verified 04/26/23 18:02 Cramps cephalexin [From Keflex] AdvReac Intermediate "Pain Verified 04/26/23 18:02 Throughout Whole Body" prednisone AdvReac Intermediate "Heart Verified 04/26/23 18:02 Racing" sulfamethoxazole AdvReac Intermediate "Pain Verified 04/26/23 18:02 [From Bactrim] Throughout Whole Body" trimethoprim [From Bactrim] AdvReac Intermediate "Pain Verified 04/26/23 18:02 Throughout Whole Body" Home Medications Medication Instructions Recorded Confirmed Type liothyronine 5 mcg tablet 5 mcg PO QAM 04/18/21 04/21/24 History methylphenidate HCl 20 mg tablet 20 mg PO TID 05/25/21 04/21/24 History zolpidem 10 mg tablet (Ambien) 10 mg PO HS 05/25/21 04/21/24 History linaclotide 145 mcg capsule 145 mcg PO QAM PRN IBS 07/27/21 04/21/24 History (Linzess) pantoprazole 40 mg tablet,delayed 40 mg PO BID PRN Acid Reflux 12/14/21 04/21/24 History release alprazolam 1 mg tablet 1 mg PO TID PRN Anxiety 04/26/23 04/21/24 History levothyroxine 125 mcg tablet 125 mcg PO QAM 04/26/23 04/21/24 History spironolactone 50 mg tablet 50 mg PO HS 04/26/23 04/21/24 History valacyclovir 1 gram tablet 1,000 mg PO BID 04/26/23 04/21/24 History ropinirole 1 mg tablet 1 mg PO HS 04/21/24 04/21/24 History Tylenol 04/22/24 History Patient History Medical History Fibromyalgia Intermittent urinary incontinence Bulging lumbar disc History of colon polyps Dysphagia Poor appetite Weight gain 15 lb wt gain over 1.5 mo Bloating IBS (irritable bowel syndrome) Beth's thyroiditis ADD (attention deficit disorder) PTSD (post-traumatic stress disorder) Bipolar disorder Anxiety and depression Migraines History of palpitations no hx cardiac workup; states "have not had in a while" Lung nodule incidental finding; scheduled to see Rambo Gutierrez 07/28/21 Surgical History History of wisdom tooth extraction History of cholecystectomy History of appendectomy History of esophagogastroduodenoscopy (EGD) History of colonoscopy History of unilateral salpingectomy Left side 2018 and Right side 2019 History of hysterectomy Family History Other No family history of adverse response to anesthesia Social History Smoking Status: Current every day smoker Tobacco Type: Cigarettes Second Hand Exposure: No; Do You Dip or Chew Tobacco: No; Tobacco Cessation Education Requested by Patient: No Hx Alcohol Use: Yes Hx Substance Use: Yes Preferred Language: Japanese Communication Ability: Effective 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 Physical Exam Constitutional: WD/WN, vitals as above Respiratory: normal respiratory effort, lungs clear to auscultation Cardiovascular: Rate/Rhythm: regular rate and regular rhythm Gastrointestinal (Abdomen): Inspection/Auscultation: normal bowel sounds Percussion/Palpation: + abdomen tender (generalized but worse in LLQ) and abdomen soft; no guarding and abdomen not rigid Skin: no rashes, warm and dry Results & Data Vital Signs (Past 12 Hours) Vital Signs Temp Pulse Pulse Resp BP BP Pulse Ox 04/22/24 09:42 60 04/22/24 08:42 71 18 97/70 L 98 04/22/24 08:30 65 90/67 L 04/22/24 08:15 62 15 98/69 L 99 04/22/24 08:00 96/61 L 04/22/24 07:51 68 16 99 04/22/24 07:48 69 12 94/68 L 95 04/22/24 07:45 98/70 L 04/22/24 07:30 69 12 94/68 L 95 04/22/24 07:15 88 14 98/64 L 93 04/22/24 07:00 95/69 L 04/22/24 07:00 62 16 95/69 L 94 04/22/24 06:15 66 20 93/71 L 98 04/22/24 06:00 66 16 97/66 L 97 04/22/24 05:45 68 18 96/68 L 96 04/22/24 05:30 66 14 99/70 L 97 04/22/24 05:15 67 16 92/37 L 95 04/22/24 05:00 73 18 94/64 L 94 04/22/24 04:45 69 14 89/68 L 97 04/22/24 04:30 91/66 L 04/22/24 04:30 67 16 91/66 L 95 04/22/24 04:15 68 14 88/61 L 95 04/22/24 04:00 67 12 92/64 L 94 04/22/24 03:53 68 16 96/67 L 96 04/22/24 02:20 36.3 C L 65 22 92/65 L 94 04/22/24 01:44 69 04/22/24 01:38 04/22/24 00:09 67 18 101/71 97 04/21/24 23:42 65 17 93/71 L 96 04/21/24 23:35 94/66 L 04/21/24 23:35 94/66 L 04/21/24 23:30 98/75 L 04/21/24 23:24 66 13 91/71 L 98 04/21/24 23:09 58 L 13 94/70 L 100 04/21/24 22:36 76 14 109/80 95 04/21/24 22:24 36.6 C 75 13 98/73 L 96 Pulse Ox O2 Del Method O2 Del Method 04/22/24 09:42 04/22/24 08:42 04/22/24 08:30 04/22/24 08:15 04/22/24 08:00 04/22/24 07:51 04/22/24 07:48 04/22/24 07:45 04/22/24 07:30 04/22/24 07:15 04/22/24 07:00 04/22/24 07:00 04/22/24 06:15 Room Air 04/22/24 06:00 Room Air 04/22/24 05:45 Room Air 04/22/24 05:30 Room Air 04/22/24 05:15 Room Air 04/22/24 05:00 Room Air 04/22/24 04:45 Room Air 04/22/24 04:30 04/22/24 04:30 Room Air 04/22/24 04:15 Room Air 04/22/24 04:00 Room Air 04/22/24 03:53 Room Air 04/22/24 02:20 Room Air 04/22/24 01:44 04/22/24 01:38 97 Room Air 04/22/24 00:09 Room Air 04/21/24 23:42 Room Air 04/21/24 23:35 04/21/24 23:35 04/21/24 23:30 04/21/24 23:24 Room Air 04/21/24 23:09 Room Air 04/21/24 22:36 Room Air 04/21/24 22:24 Room Air Laboratory Results 04/22/24 04/22/24 04/22/24 Range/Units 06:11 02:31 02:18 WBC 4.54 L (4.8-10.8) K/ul RBC 3.88 L (4.20-5.40) M/uL Hgb 12.9 (12.0-16.0) g/dl Hct 38.0 (37.0-47.0) % MCV 97.9 (80.0-100.0) fL MCH 33.2 (25.0-34.0) pg MCHC 33.9 (32.0-36.0) g/dL RDW Std Deviation 46.1 (36.4-46.3) fL RDW Coeff of Dorothy 13.0 (11.5-14.5) % Plt Count 158 (130-400) K/uL MPV 10.1 (9.4-12.4) fL Immature Gran % (Auto) 0.2 % Neut % (Auto) 75.6 % Lymph % (Auto) 19.4 % [place] % (Auto) 4.4 % Eos % (Auto) 0.2 % Baso % (Auto) 0.2 % Neut # (Auto) 3.43 (1.40-6.50) K/uL Lymph # (Auto) 0.88 L (1.20-3.40) K/uL [place] # (Auto) 0.20 (0.11-0.59) K/uL Eos # (Auto) 0.01 (0.00-0.50) K/uL Baso # (Auto) 0.01 (0.00-0.20) K/uL Immature Gran # (Auto) 0.01 (0.01-0.20) K/uL ABG pH 7.35 (7.35-7.45) ABG pCO2 39 (35-46) mmHg ABG pO2 80 (80-95) mmHg ABG HCO3 22 (19-24) mmol/L ABG O2 Saturation 97.1 H (90-95) % ABG Base Excess -3.8 (-9-1.8) mEq/L [place] Test Pos (Pos) Oxygen Given RA Sodium 140 (136-145) mmol/L Potassium 4.3 (3.5-5.1) mmol/L Chloride 112 H (98-107) mmol/L Carbon Dioxide 22 (21-32) mmol/L Anion Gap 6 (3-11) BUN 12 (6-23) mg/dl Creatinine 0.50 L (0.6-1.2) mg/dl Est Cr Clr Drug Dosing 124.0 Est GFR ( Amer) 136.4 ml/min Est GFR (Non-Af Amer) 117.7 ml/min BUN/Creatinine Ratio 24.0 H (10-20) Glucose 114 H (70-99(Fasting)) mg/dl POC Glucose 127 H (70-99) mg/dl Calcium 8.5 L (8.6-10.3) mg/dl Magnesium 1.6 L (1.7-2.4) mg/dl Total Bilirubin (0.2-1.0) mg/dl AST (13-39) U/L ALT (7-52) U/L Alkaline Phosphatase (34-104) U/L Total Protein (6.0-8.3) gm/dl Albumin (3.4-5.0) gm/dl Globulin (2.5-4.0) gm/dl Albumin/Globulin Ratio (0.9-2) Lipase (11-82) U/L Urine Color Urine Appearance (Clear) Urine pH (4.5-7.5) Ur Specific [place] (1.000-1.030) Urine Protein (Negative) Urine Glucose (UA) (Negative) Urine Ketones (Negative) Urine Blood (Negative) Urine Nitrite (Negative) Urine Bilirubin (Negative) Urine Urobilinogen (Negative) Ur Leukocyte Esterase (Negative) Urine Opiates Screen (Neg) Ur Methadone, Qual (Neg) Urine Fentanyl Screen (Neg) Urine Barbiturates (Neg) Ur Phencyclidine (PCP) (Neg) U Amphetamines Confirm U Amphetamin/Meth Scrn (Neg) U Methamphetamin Confrm MDMA (Ecstasy) Screen (Neg) U OH-Alprazolam Confrm U Benzodiazepines Scrn (Neg) 7-Amino Clonazepam Ur Nordiazepam Confirm U OH-ethylflurazepam U Lorazepam Cnf GC/MS U Oxazepam Confm GC/MS Ur Temazepam Confirm U OH-Triazolam Confirm U OH-Midazolam Confirm Ur Cocaine Metabolite (Neg) U Marijuana (THC) Screen (Neg) Drug Screen Comment Lyme Disease Screen (Negative) 04/21/24 04/21/24 04/21/24 Range/Units 20:28 18:20 18:00 WBC 3.86 L (4.8-10.8) K/ul RBC 3.93 L (4.20-5.40) M/uL Hgb 12.8 (12.0-16.0) g/dl Hct 38.4 (37.0-47.0) % MCV 97.7 (80.0-100.0) fL MCH 32.6 (25.0-34.0) pg MCHC 33.3 (32.0-36.0) g/dL RDW Std Deviation 45.9 (36.4-46.3) fL RDW Coeff of [place] 12.7 (11.5-14.5) % Plt Count 158 (130-400) K/uL MPV 9.7 (9.4-12.4) fL Immature Gran % (Auto) 0.0 % Neut % (Auto) 47.4 % Lymph % (Auto) 37.3 % [place] % (Auto) 7.5 % Eos % (Auto) 7.3 % Baso % (Auto) 0.5 % Neut # (Auto) 1.83 (1.40-6.50) K/uL Lymph # (Auto) 1.44 (1.20-3.40) K/uL [place] # (Auto) 0.29 (0.11-0.59) K/uL Eos # (Auto) 0.28 (0.00-0.50) K/uL Baso # (Auto) 0.02 (0.00-0.20) K/uL Immature Gran # (Auto) 0.00 L (0.01-0.20) K/uL ABG pH (7.35-7.45) ABG pCO2 (35-46) mmHg ABG pO2 (80-95) mmHg ABG HCO3 (19-24) mmol/L ABG O2 Saturation (90-95) % ABG Base Excess (-9-1.8) mEq/L [place] Test (Pos) Oxygen Given Sodium 139 (136-145) mmol/L Potassium 4.0 (3.5-5.1) mmol/L Chloride 109 H (98-107) mmol/L Carbon Dioxide 28 (21-32) mmol/L Anion Gap 2 L (3-11) BUN 14 (6-23) mg/dl Creatinine 0.56 L (0.6-1.2) mg/dl Est Cr Clr Drug Dosing Not Reportable Est GFR ( Amer) 131.4 ml/min Est GFR (Non-Af Amer) 113.4 ml/min BUN/Creatinine Ratio 25.0 H (10-20) Glucose 90 (70-99(Fasting)) mg/dl POC Glucose 94 (70-99) mg/dl Calcium 9.0 (8.6-10.3) mg/dl Magnesium (1.7-2.4) mg/dl Total Bilirubin 0.3 (0.2-1.0) mg/dl AST 18 (13-39) U/L ALT 16 (7-52) U/L Alkaline Phosphatase 59 (34-104) U/L Total Protein 6.4 (6.0-8.3) gm/dl Albumin 3.9 (3.4-5.0) gm/dl Globulin 2.5 (2.5-4.0) gm/dl Albumin/Globulin Ratio 1.6 (0.9-2) Lipase 25 (11-82) U/L Urine Color Yellow Urine Appearance Clear (Clear) Urine pH 6.0 (4.5-7.5) Ur Specific [place] 1.012 (1.000-1.030) Urine Protein Negative (Negative) Urine Glucose (UA) Negative (Negative) Urine Ketones Negative (Negative) Urine Blood Negative (Negative) Urine Nitrite Negative (Negative) Urine Bilirubin Negative (Negative) Urine Urobilinogen Negative (Negative) Ur Leukocyte Esterase Negative (Negative) Urine Opiates Screen Neg (Neg) Ur Methadone, Qual Neg (Neg) Urine Fentanyl Screen Neg (Neg) Urine Barbiturates Neg (Neg) Ur Phencyclidine (PCP) Neg (Neg) U Amphetamines Confirm Pending U Amphetamin/Meth Scrn Pos H (Neg) U Methamphetamin Confrm Pending MDMA (Ecstasy) Screen Neg (Neg) U OH-Alprazolam Confrm Pending U Benzodiazepines Scrn Pos H (Neg) 7-Amino Clonazepam Pending Ur Nordiazepam Confirm Pending U OH-ethylflurazepam Pending U Lorazepam Cnf GC/MS Pending U Oxazepam Confm GC/MS Pending Ur Temazepam Confirm Pending U OH-Triazolam Confirm Pending U OH-Midazolam Confirm Pending Ur Cocaine Metabolite Neg (Neg) U Marijuana (THC) Screen Neg (Neg) Drug Screen Comment Pending Lyme Disease Screen Negative (Negative) PG Care Time/CCT Total # of Minutes Spent Total Time Spent with Patient: Total time spent is greater than 50% in coordination of care (as documented) at patient's floor/unit and/or counseling patient: Coding Level of Care Code 95470 IN/OBS CONSULT LVL 4,60M Diagnoses Generalized abdominal pain R10.84 Abdominal location: generalized (1) Abdominal pain Abdominal location: generalized Qualified Code(s): R10.84 - Generalized abdominal pain
--- NOTE | 2024-04-22 10:45 | Electrocardiogram Report ---
Test Reason : Blood Pressure : / mmHG Vent. Rate : 069 BPM Atrial Rate : 069 BPM P-R Int : 130 ms QRS Dur : 076 ms QT Int : 378 ms P-R-T Axes : 079 069 059 degrees QTc Int : 405 ms Normal sinus rhythm Normal ECG When compared with ECG of 03-JUN-2023 12:56, No significant change was found Confirmed by Noble Walter ([id number]) on 04/22/2024 10:45:42 AM Referred By: REFERRED SELF Confirmed By:Noble Walter
[2024-04-22] MEDS: HYDROmorphone INJ 0.5 MG/0.5 ML SYR IV STA (13:26)
--- NOTE | 2024-04-22 13:26 | Hospitalist Progress Note ---
Date of Service April 22, 2024 Assessment & Plan (1) AMS (altered mental status): Plan: Ms. Slade is a 43-year-old female with past medical history significant for hypothyroidism, history of nausea vomiting, history of colitis, GERD, history of leukopenia, history of thrombocytopenia, history of anemia, history of anxiety, history of cervical cancer as per records in epic comes because of abdominal pain, patient says going on for last 1 year on the left side radiating to the ribs. CT abd/pelvis with fluid filled stool with ?enteritis. GI following: stool studies ordered; OP scope likely History of colitis in 2013, responsive to abx (cipro/flagyl) #Hypotension Baseline: mid 90s-100s -Pressures run borderline low; notable hypothyroidism given TSH in 02/2024 of 85 -UA negative -AM Cortisol -Aggressive IVF--fluid responsive #Enteritis/Colitis #Hematochezia #Abdominal pain CT with enteritis -Treated in 2013 for similar presentation of colitis with Cipro/flagyl Reports history of polyps and ?colitis; no clear diagnosis Hgb stable at this time Continue Protonix Start cipro/flagyl IV at this time GI following -C-scope tentative for tomorrow #altered mental status CT head normal, though to be 2/2 benadryl +fentanyl combo s/p narcan with min approval Much more cognizant this am Trial of 0.5 Dilaudid for pain regimen x1, assess #GERD on PPI at baseline BID #Hypothyroidism TSH 0.224, normal FT4 continue home meds: levothyroxine, liothyronine #RLS ropinirole #ADHD #Anxiety UDS + amphetamines/benzos iso methylphenidate, alprazolam #Insomnia zolpidem #Diffuse arthralgias Undergoing autoimmune work up at [facility]: SONY negative, undetectable CCP/RF, Lyme negative, Immunoglobins neg CRP negative DVT prophylaxis SCDs for now disposition telemetry full code Admission and Anticipated Discharge Date Admission Date: April 22, 2024 Subjective Altered overnight: suspects combination of benadryl and fentanyl Reports ongoing abdominal pain/cramping Denies fevers, chills, nausea--but notes poor appetite Physical Exam Constitutional: WD/WN, vitals as above Respiratory: normal respiratory effort, lungs clear to auscultation Cardiovascular: RRR, no murmur, no edema Gastrointestinal (Abdomen): mild tenderness to LLQ Results & Data Results & Data Vital Signs (Past 12 Hours) Vital Signs Temp Pulse Pulse Resp BP BP Pulse Ox 04/22/24 12:34 72 17 85/59 L 99 04/22/24 12:31 85 73/50 L 100 04/22/24 09:42 60 04/22/24 09:30 89/65 L 04/22/24 09:30 68 13 97 04/22/24 09:15 92/64 L 04/22/24 09:00 73 20 95/67 L 04/22/24 08:42 71 18 97/70 L 98 04/22/24 08:30 65 90/67 L 04/22/24 08:15 62 15 98/69 L 99 04/22/24 08:00 96/61 L 04/22/24 07:51 68 16 99 04/22/24 07:48 69 12 94/68 L 95 04/22/24 07:45 98/70 L 04/22/24 07:30 69 12 94/68 L 95 04/22/24 07:15 88 14 98/64 L 93 04/22/24 07:00 95/69 L 04/22/24 07:00 62 16 95/69 L 94 04/22/24 06:15 66 20 93/71 L 98 04/22/24 06:00 66 16 97/66 L 97 04/22/24 05:45 68 18 96/68 L 96 04/22/24 05:30 66 14 99/70 L 97 04/22/24 05:15 67 16 92/37 L 95 04/22/24 05:00 73 18 94/64 L 94 04/22/24 04:45 69 14 89/68 L 97 04/22/24 04:30 91/66 L 04/22/24 04:30 67 16 91/66 L 95 04/22/24 04:15 68 14 88/61 L 95 04/22/24 04:00 67 12 92/64 L 94 04/22/24 03:53 68 16 96/67 L 96 04/22/24 02:20 36.3 C L 65 22 92/65 L 94 04/22/24 01:44 69 04/22/24 01:38 Pulse Ox O2 Del Method O2 Del Method 04/22/24 12:34 Room Air 06/25/24 12:31 Room Air 04/22/24 09:42 04/22/24 09:30 04/22/24 09:30 04/22/24 09:15 04/22/24 09:00 04/22/24 08:42 04/22/24 08:30 04/22/24 08:15 04/22/24 08:00 04/22/24 07:51 04/22/24 07:48 04/22/24 07:45 04/22/24 07:30 04/22/24 07:15 04/22/24 07:00 04/22/24 07:00 04/22/24 06:15 Room Air 04/22/24 06:00 Room Air 04/22/24 05:45 Room Air 04/22/24 05:30 Room Air 04/22/24 05:15 Room Air 04/22/24 05:00 Room Air 04/22/24 04:45 Room Air 04/22/24 04:30 04/22/24 04:30 Room Air 04/22/24 04:15 Room Air 04/22/24 04:00 Room Air 04/22/24 03:53 Room Air 04/22/24 02:20 Room Air 04/22/24 01:44 04/22/24 01:38 97 Room Air Laboratory Results Short CBC 04/21/24 04/22/24 Range/Units 18:00 06:11 WBC 3.86 L 4.54 L (4.8-10.8) K/ul Hgb 12.8 12.9 (12.0-16.0) g/dl Hct 38.4 38.0 (37.0-47.0) % Plt Count 158 158 (130-400) K/uL BMP 04/21/24 04/22/24 18:00 06:11 Sodium 139 140 Potassium 4.0 4.3 Chloride 109 H 112 H Carbon Dioxide 28 22 BUN 14 12 Creatinine 0.56 L 0.50 L Glucose 90 114 H Calcium 9.0 8.5 L Liver Function 04/21/24 Range/Units 18:00 Total Bilirubin 0.3 (0.2-1.0) mg/dl AST 18 (13-39) U/L ALT 16 (7-52) U/L Alkaline Phosphatase 59 (34-104) U/L Albumin 3.9 (3.4-5.0) gm/dl Urine 04/21/24 Range/Units 18:20 Urine Color Yellow Urine Appearance Clear (Clear) Urine pH 6.0 (4.5-7.5) Ur Specific [place] 1.012 (1.000-1.030) Urine Protein Negative (Negative) Urine Glucose (UA) Negative (Negative) Diagnostic Findings OSH Flex sigmoidoscopy 03/31/2014: Impression: - One benign appearing 3 mm polyp in the rectum. Resected and retrieved. - One 2 mm polyp in the sigmoid colon. Resected and retrieved. - Normal mucosa in the rectum, in the sigmoid colon, in the descending colon, at the splenic flexure and in the transverse colon. Biopsied. No evidence of colitis on exam. Pathology is awaited. - The examination was otherwise normal. Medications Administered Home Medications Medication Instructions Recorded Confirmed Last Taken liothyronine 5 mcg tablet 5 mcg PO QAM 04/18/21 04/21/24 04/26/23 methylphenidate HCl 20 mg tablet 20 mg PO TID 05/25/21 04/21/24 04/26/23 zolpidem 10 mg tablet (Ambien) 10 mg PO HS 05/25/21 04/21/24 04/25/23 linaclotide 145 mcg capsule 145 mcg PO QAM PRN IBS 07/27/21 04/21/24 12/07/21 (Linzess) pantoprazole 40 mg tablet,delayed 40 mg PO BID PRN Acid Reflux 12/14/21 04/21/24 12/07/21 release alprazolam 1 mg tablet 1 mg PO TID PRN Anxiety 04/26/23 04/21/24 04/26/23 levothyroxine 125 mcg tablet 125 mcg PO QAM 04/26/23 04/21/24 04/26/23 spironolactone 50 mg tablet 50 mg PO HS 04/26/23 04/21/24 04/25/23 valacyclovir 1 gram tablet 1,000 mg PO BID 04/26/23 04/21/24 04/26/23 ropinirole 1 mg tablet 1 mg PO HS 04/21/24 04/21/24 Unknown Tylenol 04/22/24 Unknown Active Medications Generic Name Dose Route Start Last Admin Trade Name Freq PRN Reason Stop Dose Admin Sodium Chloride 1,000 mls @ 125 mls/hr 04/22/24 01:38 04/22/24 11:59 Nss IV 05/22/24 01:37 125 mls/hr .Q8H GINO Administration Pantoprazole Sodium 40 mg/ 10 mls @ 5 mls/min 04/22/24 09:00 04/22/24 07:46 Syringe IV 05/22/24 08:59 5 mls/min BID GINO Administration Levothyroxine Sodium 125 mcg 04/22/24 06:30 04/22/24 05:51 Levothyroxine Sodium 125 Mcg Tablet PO 05/22/24 06:29 125 mcg DAILYBB GINO Administration Liothyronine Sodium 5 mcg 04/22/24 09:00 04/22/24 07:46 Liothyronine Sodium 5 Mcg Tab PO 05/22/24 08:59 5 mcg QAM GINO Administration Methylphenidate HCl 20 mg 04/22/24 07:00 04/22/24 12:18 Methylphenidate Hcl 10 Mg Tablet PO 05/06/24 06:59 Not Given TID@0700,1100,1400 GINO Valacyclovir HCl 1,000 mg 04/22/24 09:00 04/22/24 07:46 Valacyclovir Hcl 500 Mg Tablet PO 05/22/24 08:59 1,000 mg BID GINO Administration
[2024-04-22 14:04] LABS: C Reactive Protein < 0.50 mg/dl (0-0.5)
[2024-04-22 14:19] LABS: Thyroid Stimulating Hormone 0.224 uIu/ml (0.300-4.500)
[2024-04-22] MEDS ORDERED: LAVAGE SOLUTION 4000ML PO SCH (15:30)
[2024-04-22] MEDS: CIPROFLOXACIN / D5W 400 MG/200 ML BAG IV SCH (16:13)
[2024-04-22] MEDS: metroNIDAZOLE 500 MG/100 ML BAG IV SCH (16:13)
[2024-04-22] MEDS: HYDROmorphone INJ 0.5 MG/0.5 ML SYR IV PRN (16:20)
[2024-04-22] MEDS: LAVAGE SOLUTION 4000ML PO SCH (19:30)
[2024-04-22] MEDS: SPIRONOLACTONE 25 MG TAB PO SCH (21:05)
[2024-04-22] MEDS: rOPINIRole HCL 1 MG TABLET PO SCH (21:06)
[2024-04-23] MEDS: PROCHLORPERAZINE 5 MG in SYRINGE 4 ML IV ONE (06:27)
[2024-04-23 07:58] LABS: Hemoglobin 12.1 g/dl (12.0-16.0); Mean Corpuscular Hgb Conc 32.7 g/dL (32.0-36.0); Mean Corpuscular Volume 100.8 fL (80.0-100.0); Mean Platelet Volume 9.8 fL (9.4-12.4); Platelet Count 115 K/uL (130-400); RDW Coefficient of Variation 13.2 % (11.5-14.5); RDW Standard Deviation 49.2 fL (36.4-46.3); Red Blood Count 3.67 M/uL (4.20-5.40); White Blood Count 3.42 K/ul (4.8-10.8)
[2024-04-23 08:05] LABS: Albumin Globulin Ratio 1.4 (0.9-2); Albumin Level 3.4 gm/dl (3.4-5.0); BUN Creatinine Ratio 15.9 (10-20); Bilirubin,Total 0.5 mg/dl (0.2-1.0); Creatinine Clr Calc Pharmacy 98.4 ml/min; Est GFR (African American) 126.4 ml/min; Est GFR (Non-African American) 109.1 ml/min; Globulin 2.5 gm/dl (2.5-4.0); Magnesium 1.6 mg/dl (1.7-2.4); Phosphorus 2.7 mg/dl (2.5-4.9); Potassium 3.6 mmol/L (3.5-5.1); Total Protein 5.9 gm/dl (6.0-8.3)
[2024-04-23] MEDS: SODIUM CHLORIDE 0.9% 500 ML IV SCH (09:19)
[2024-04-23 10:42] LABS: Basophils # (auto) 0.02 K/uL (0.00-0.20); Basophils % (auto) 0.5 %; Eosinophils # (auto) 0.13 K/uL (0.00-0.50); Eosinophils % (auto) 3.3 %; Hematocrit (blood only) 35.8 % (37.0-47.0); Hemoglobin 11.8 g/dl (12.0-16.0); Immature Granulocytes # (auto) 0.01 K/uL (0.01-0.20); Immature Granulocytes % (auto) 0.3 %; Lymphocytes # (auto) 1.32 K/uL (1.20-3.40); Lymphocytes % (auto) 33.5 %; Mean Corpuscular Hemoglobin 32.9 pg (25.0-34.0); Mean Corpuscular Volume 99.7 fL (80.0-100.0); Monocytes # (auto) 0.29 K/uL (0.11-0.59); Monocytes % (auto) 7.4 %; Neutrophils # (auto) 2.17 K/uL (1.40-6.50); Platelet Count 125 K/uL (130-400); RDW Coefficient of Variation 13.3 % (11.5-14.5); Red Blood Count 3.59 M/uL (4.20-5.40); White Blood Count 3.94 K/ul (4.8-10.8)
--- NOTE | 2024-04-23 10:46 | Gastroenterology Progress Note ---
Date of Service April 23, 2024 Assessment & Plan (1) Abdominal pain: Plan: 43 year old female with chronic abd pain, alternating bowel habits, intermittent bloody stools w/ mucous imaging showing fluid filled loops of small bowel w/ hyperemic mural enhancement, concerning for enteritis KUB today Arrange stool studies Add fecal calprotectin Clear liquid diet today Consider Bentyl 10 mg three times daily Pending results of stool studies, will discuss timing of endoscopic evaluation She is overdue for a colonoscopy for polyp recall given poor prep in 2020 Thank you for allowing us to participate in the care of this patient. Please call with any acute changes, questions or concerns. Please see addendum below with additional recommendation from my supervising physician. I spent a total of 30 minutes on the date of service in review of patient's record, and previously obtained information in person and appropriate medical visit, discussion and education of plan, with patient and/or caregiver, placing orders for tests/referral/procedures as medically necessary and documentation of pertinent clinical information in patient's medical records for their visit today. Admission and Anticipated Discharge Date Admission Date: April 22, 2024 Supervising Physician Co-Signing Physician Notes I examined the patient and reviewed patient's chart , laboratory data and imaging studies. I agree with with assessment and plan of care as suggested by advanced practice provider. The patient is not feeling well today. She continues with nausea and vomiting. Continues with diffuse abdominal pain. She had a bowel movement earlier today. Patient was unable to take the prep for colonoscopy due to vomiting. Labs reviewed. Morning cortisol level was decreased at 2.7 raising concern for adrenal insufficiency. Continue supportive measures. Continue antiemetics. Continue IVs. Evaluation of decreased cortisol level. Subjective Pt was seen and evaluated, chart reviewed. Not able to tolerate bowel prep. Has not produced any BM. I offered to reschedule EGD/Colon for tomorrow, she would prefer to wait and get this as an outpatient now. Symptoms persist, abd pain, cramping, nausea. No fever, chills, CP, SOB. Stool studies were ordered but not obtained yet. Review of Systems Review of Systems: All other findings negative except as noted in HPI. Physical Exam Constitutional: WD/WN, vitals as above Respiratory: normal respiratory effort Cardiovascular: Rate/Rhythm: regular rate and regular rhythm Gastrointestinal (Abdomen): Inspection/Auscultation: normal bowel sounds Percussion/Palpation: + abdomen tender and abdomen soft; no guarding and abdomen not rigid Skin: no rashes, warm and dry Results & Data Results & Data Vital Signs (Past 12 Hours) Vital Signs Temp Pulse Resp BP Pulse Ox O2 Del Method 04/23/24 10:26 81 18 107/72 97 Room Air 04/23/24 07:41 36.8 C 58 L 19 95/69 L 99 Room Air 04/23/24 02:34 36.6 C 64 18 91/51 L 94 Room Air 04/22/24 22:48 36.6 C 60 18 94/61 L 99 Room Air Laboratory Results 04/23/24 04/23/24 04/22/24 Range/Units 10:09 07:29 06:11 WBC 3.94 L 3.42 L (4.8-10.8) K/ul RBC 3.59 L 3.67 L (4.20-5.40) M/uL Hgb 11.8 L 12.1 (12.0-16.0) g/dl Hct 35.8 L 37.0 (37.0-47.0) % MCV 99.7 100.8 H (80.0-100.0) fL MCH 32.9 33.0 (25.0-34.0) pg MCHC 33.0 32.7 (32.0-36.0) g/dL RDW Std Deviation 49.0 H 49.2 H (36.4-46.3) fL RDW Coeff of Dorothy 13.3 13.2 (11.5-14.5) % Plt Count 125 L 115 L (130-400) K/uL MPV 10.0 9.8 (9.4-12.4) fL Immature Gran % (Auto) 0.3 % Neut % (Auto) 55.0 % Lymph % (Auto) 33.5 % [place] % (Auto) 7.4 % Eos % (Auto) 3.3 % Baso % (Auto) 0.5 % Neut # (Auto) 2.17 (1.40-6.50) K/uL Lymph # (Auto) 1.32 (1.20-3.40) K/uL [place] # (Auto) 0.29 (0.11-0.59) K/uL Eos # (Auto) 0.13 (0.00-0.50) K/uL Baso # (Auto) 0.02 (0.00-0.20) K/uL Immature Gran # (Auto) 0.01 (0.01-0.20) K/uL Sodium 141 (136-145) mmol/L Potassium 3.6 (3.5-5.1) mmol/L Chloride 111 H (98-107) mmol/L Carbon Dioxide 24 (21-32) mmol/L Anion Gap 6 (3-11) BUN 10 (6-23) mg/dl Creatinine 0.63 (0.6-1.2) mg/dl Est Cr Clr Drug Dosing 98.4 ml/min Est GFR ( Amer) 126.4 ml/min Est GFR (Non-Af Amer) 109.1 ml/min BUN/Creatinine Ratio 15.9 (10-20) Glucose 90 (70-99(Fasting)) mg/dl Calcium 8.0 L (8.6-10.3) mg/dl Phosphorus 2.7 (2.5-4.9) mg/dl Magnesium 1.6 L (1.7-2.4) mg/dl Total Bilirubin 0.5 (0.2-1.0) mg/dl AST 71 H (13-39) U/L ALT 132 H (7-52) U/L Alkaline Phosphatase 73 (34-104) U/L C-Reactive Protein < 0.50 (0-0.5) mg/dl Total Protein 5.9 L (6.0-8.3) gm/dl Albumin 3.4 (3.4-5.0) gm/dl Globulin 2.5 (2.5-4.0) gm/dl Albumin/Globulin Ratio 1.4 (0.9-2) TSH 0.224 L (0.300-4.500) uIu/ml Free T4 0.90 (0.61-1.60) ng/dl Cortisol AM Sample 2.70 L (6.2-22.6) mcg/dl PG Care Time/CCT Total # of Minutes Spent Total Time Spent with Patient: Total time spent is greater than 50% in coordination of care (as documented) at patient's floor/unit and/or counseling patient: Coding Level of Care Code 44964 SUB INP/OBS CARE 25MIN Diagnoses Generalized abdominal pain R10.84 Abdominal location: generalized (1) Abdominal pain Abdominal location: generalized Qualified Code(s): R10.84 - Generalized abdominal pain
[2024-04-23] MEDS: PROCHLORPERAZINE 5 MG in SYRINGE 4 ML IV PRN (14:34)
--- NOTE | 2024-04-23 16:52 | Hospitalist Progress Note ---
Date of Service April 23, 2024 Assessment & Plan (1) AMS (altered mental status): Plan: Ms. Slade is a 43-year-old female with past medical history significant for hypothyroidism, history of nausea/vomiting, history of colitis, GERD, history of leukopenia, history of thrombocytopenia, history of anemia, history of anxiety, history of cervical cancer presenting with abdominal pain. Patient says it has been going on for last year on the left side radiating to the ribs. CT abd/pelvis with fluid filled stool with ?enteritis. GI following: stool studies ordered; OP scope likely History of colitis in 2013, responsive to abx (cipro/flagyl) Enteritis/Colitis Intractable N/V Hematochezia Abdominal pain CT with enteritis -Treated in 2013 for similar presentation of colitis with Cipro/flagyl Reports history of polyps and ?colitis; no clear diagnosis Hgb stable at this time Continue Protonix Start cipro/flagyl IV at this time GI following -C-scope was planned, has since been discontinued due to pt's inability to tolerate prep -per GI, pt would like to complete outpt. Antiemetics Hypotension Baseline: mid 90s-100s Pressures run borderline low Pt chronically on spironolactone 50mg for Hx of alopecia, will hold as possible cause (spironolactone potent antihypertensive) UA negative AM cortisol ordered by previous provider, low. ACTH pending Started on Solucortef Aggressive IVF--fluid responsive Hold spironolactone at this time Continue to monitor Altered mental status Acute Toxic encephalopathy CT head normal, thought to be 2/2 benadryl +fentanyl combo s/p narcan with min approval on admission Much more cognizant at this time Continue to monitor Elevated liver enzymes Periportal edema, liver Liver enzymes elevated, trend CT abd/pelvis noting moderate periportal edema around the liver US liver ordered and pending Hypomagnesemia replete as needed GERD on PPI at baseline BID Hypothyroidism TSH 0.224, normal FT4 continue home meds: levothyroxine, liothyronine RLS continue ropinirole ADHD Anxiety UDS + amphetamines/benzos in setting of methylphenidate, alprazolam Insomnia zolpidem on hold in setting Diffuse arthralgias Undergoing autoimmune work up at [facility]: SONY negative, undetectable CCP/RF, Lyme negative, Immunoglobins neg CRP negative Diet: clears at this time, npo after midnight DVT prophylaxis: SCDs for now Dispo: home once medically stable Admission and Anticipated Discharge Date Admission Date: April 22, 2024 Subjective Pt was seen in the room, laying in bed. Notes still nauseated. Not having the scopes with GI today. Spoke to pt's fiance at approximately 5pm. Angry, questions about next steps and pt's N/V not being controlled. Advised that GI would be contacted and advised that family has questions Review of Systems Review of Systems: All systems reviewed & are unremarkable except as noted in Subjective Physical Exam Physical Exam: General: Alert. No acute distress Psych: Appropriate mood and affect Neuro: No gross deficits while laying in bed HEENT: NC/AT CV: Normal s1, s2. No murmurs appreciated Resp: Breath sounds clear bilaterally, no increased effort of breathing. Abdomen: Soft, nontender, nondistended. Extremities: No edema in lower extremities bilaterally. Results & Data Results & Data Vital Signs (Past 12 Hours) Vital Signs Temp Pulse Pulse Resp BP Pulse Ox O2 Del Method 04/23/24 14:43 56 L 04/23/24 11:09 37.0 C 69 19 94/66 L 94 Room Air 04/23/24 10:26 81 18 107/72 97 Room Air 04/23/24 09:18 57 L 04/23/24 07:41 36.8 C 58 L 19 95/69 L 99 Room Air Diagnostic Findings Abdomen/Pelvis CT 04/21/24 16:41 Exam(s): CT ABDOMEN + PELVIS With Contrast IV Amt: 91ml optiray 320 EXAM: CT Abdomen and Pelvis With Intravenous Contrast CLINICAL HISTORY: Reason for exam: left upper abd pain passing blood clots per rectum. TECHNIQUE: Axial computed tomography images of the abdomen and pelvis with intravenous contrast. CTDI is 12 mGy and DLP is 585 mGy-cm. Automated exposure control was utilized for the study. A dose lowering technique was utilized adhering to the principles of ALARA. CONTRAST: Patient received 91ml optiray 320 of IV contrast COMPARISON: 06/03/2023 FINDINGS: Lung bases: Unremarkable. No mass. No consolidation. ABDOMEN: Liver: Moderate periportal edema. Gallbladder and bile ducts: Postoperative changes prior cholecystectomy. No ductal dilation. Pancreas: Unremarkable. No mass. No ductal dilation. Spleen: Splenomegaly. Adrenals: Unremarkable. No mass. Kidneys and ureters: Both kidneys opacify with and excrete contrast in a normal symmetric fashion. . Stomach and bowel: There is fluid-filled loops of small bowel within the pelvis with hyperemic mural enhancement. No obstruction. No mucosal thickening. PELVIS: Appendix: No findings to suggest acute appendicitis. Bladder: Unremarkable. No mass. Reproductive: Unremarkable as visualized. ABDOMEN and PELVIS: Intraperitoneal space: Unremarkable. No free air. No significant fluid collection. Bones/joints: No acute fracture. No dislocation. Soft tissues: See above. Vasculature: Dilatation of the main portal vein suggesting portal hypertension. Lymph nodes: Unremarkable. No enlarged lymph nodes. IMPRESSION: Fluid-filled loops of small bowel within the pelvis with hyperemic mural enhancement. Findings may is enteritis in the appropriate clinical setting. Electronically signed by: Wallace Rhodes MD 04/21/24 20:[address] 04/22/24 01:38 Exam(s): CT HEAD Without Contrast EXAM: CT Head Without Intravenous Contrast CLINICAL HISTORY: Reason for exam: AMS. TECHNIQUE: Axial computed tomography images of the head/brain without intravenous contrast. CTDI is 38.03 mGy and DLP is 547.75 mGy-cm. Automated exposure control was utilized for the study. A dose lowering technique was utilized adhering to the principles of ALARA. COMPARISON: 04/26/2023 FINDINGS: Brain: Unremarkable. No hemorrhage. No significant white matter disease. No edema. Ventricles: Unremarkable. No ventriculomegaly. Bones/joints: Unremarkable. No acute fracture. Soft tissues: Unremarkable. Sinuses: Unremarkable as visualized. No acute sinusitis. Mastoid air cells: Unremarkable as visualized. No mastoid effusion. IMPRESSION: Normal head/brain CT. Electronically signed by: Wallace Rhodes MD 04/22/24 03:14 AM KUB X-Ray 04/23/24 10:46 XR KUB/Abdomen 1 view CLINICAL HISTORY: abd pain, distention, enteritis on CT TECHNIQUE: 1 view of the abdomen was obtained. Comparison: Comparison is made to CT abdomen pelvis 04/21/2024 FINDINGS: Cholecystomy clips are seen in the right upper quadrant. The osseous structures are grossly unremarkable. The bowel gas pattern is nonobstructive. A moderate amount of stool is noted within the large bowel. IMPRESSION: Nonobstructive bowel gas pattern. ACT 112: Negative or not required by law. Electronically signed by: Jb Francisco M.D. 04/23/2024 5:44 PM
--- NOTE | 2024-04-23 17:45 | XRay Report ---
XR KUB/Abdomen 1 view CLINICAL HISTORY: abd pain, distention, enteritis on CT TECHNIQUE: 1 view of the abdomen was obtained. Comparison: Comparison is made to CT abdomen pelvis 04/21/2024 FINDINGS: Cholecystomy clips are seen in the right upper quadrant. The osseous structures are grossly unremarka ble. The bowel gas pattern is nonobstructive. A moderate amount of stool is noted within the large wicho wel. IMPRESSION: Nonobstructive bowel gas pattern. ACT 112: Negative or not required by law. Electronically signed by: Jb Francisco M.D. 04/23/2024 5:44 PM
[2024-04-23] MEDS: ALPRAZolam 0.5 MG TABLET PO STA (20:24)
[2024-04-23] MEDS: MAGNESIUM SULFATE / D5W 1 GM/100 ML BAG IV SCH (20:26)
[2024-04-23] MEDS: HYDROCORTISONE SOD 100 MG in SYRINGE 0 ML IV SCH (20:29)
[2024-04-23] MEDS: diazePAM 2 MG TABLET PO ONE (21:08)
[2024-04-24 07:45] LABS: Albumin Globulin Ratio 1.4 (0.9-2); Albumin Level 3.3 gm/dl (3.4-5.0); BUN Creatinine Ratio 15.7 (10-20); Bilirubin,Total 0.4 mg/dl (0.2-1.0); Calcium 8.2 mg/dl (8.6-10.3); Creatinine Clr Calc Pharmacy 121.6 ml/min; Est GFR (African American) 135.5 ml/min; Est GFR (Non-African American) 116.9 ml/min; Globulin 2.3 gm/dl (2.5-4.0); Magnesium 1.7 mg/dl (1.7-2.4); Phosphorus 3.9 mg/dl (2.5-4.9); Potassium 3.8 mmol/L (3.5-5.1); Total Protein 5.6 gm/dl (6.0-8.3)
--- NOTE | 2024-04-24 08:03 | Ultrasound Report ---
ULTRASOUND RIGHT UPPER QUADRANT ABDOMEN CLINICAL HISTORY: Elevated hepatic transaminases. COMPARISON STUDY: Abdominal CT dated 04/21/2024. TECHNIQUE: Real-time, grayscale, and color flow sonography of the right upper quadrant of the abdomen was performed. Images are reviewed in the transverse and longitudinal planes. FINDINGS: Liver: The liver is top normal in size and homogeneous in echotexture. There is no intrahepatic bilia ry ductal dilatation. The main portal vein is patent. Gallbladder: The gallbladder is surgically absent. The common bile duct measures up to 0.2 cm in diam eter. Pancreas: Visualized portions of the pancreatic head and body are normal in appearance. The splenic v ein is patent. Right kidney: Survey images of the right kidney demonstrate normal size and echotexture. There is no hydronephrosis. Trace perinephric fluid is observed. Ascites: There is trace perihepatic ascites. Pleural spaces: There is a small right pleural effusion. IMPRESSION: 1. Normal sonographic appearance of liver. 2. Status post cholecystectomy. 3. A small right pleural effusion and trace perihepatic ascites suggest fluid overload ACT 112: Negative or not required by law. Electronically signed by: Chacho Chin M.D. 04/24/2024 8:02 AM
--- NOTE | 2024-04-24 09:39 | Gastroenterology Progress Note ---
Date of Service April 24, 2024 Assessment & Plan (1) Abdominal pain: Plan: 43 year old female with chronic abd pain, alternating bowel habits, intermittent bloody stools w/ mucous imaging showing fluid filled loops of small bowel w/ hyperemic mural enhancement, concerning for enteritis. She was scheduled for EGD/Colonoscopy, however, she was not agreeable to prepping for this was the study was cancelled. I offered her the testing again and she refused. Continue conservative measures Arrange stool studies Add fecal calprotectin Diet as tolerated Consider Bentyl 10 mg three times daily Thank you for allowing us to participate in the care of this patient. Please call with any acute changes, questions or concerns. Please see addendum below with additional recommendation from my supervising physician. I spent a total of 40 minutes on the date of service in review of patient's record, and previously obtained information in person and appropriate medical visit, discussion and education of plan, with patient and/or caregiver, placing orders for tests /referral/procedures as medically necessary and documentation of pertinent clinical information in patient's medical records for their visit today. Admission and Anticipated Discharge Date Admission Date: April 22, 2024 Supervising Physician Co-Signing Physician Notes I examined the patient and reviewed patient's chart , laboratory data and imaging studies. I agree with with assessment and plan of care as suggested by advanced practice provider Subjective Pt was seen and evaluated, chart reviewed. She notes she is starting to feel better this AM. Less pain. Less nausea. No vomiting. Had a small BM last evening. She did not keep for the request sample. I was able to talk to her partner last evening on the phone. He is frustrated we did not completed EGD/Colonoscopy. I discussed with him that this test was offered and planned, but Laura refused the preparation for the test. I offered her the testing again this morning and she was not agreeable again. Review of Systems Review of Systems: All other findings negative except as noted in HPI. Physical Exam Constitutional: WD/WN, vitals as above Respiratory: normal respiratory effort, lungs clear to auscultation Cardiovascular: Rate/Rhythm: regular rate and regular rhythm Gastrointestinal (Abdomen): normal bowel sounds, soft, nontender, no hepatosplenomegaly Skin: no rashes, warm and dry Results & Data Results & Data Vital Signs (Past 12 Hours) Vital Signs Temp Pulse Pulse Resp BP Pulse Ox Pulse Ox 04/24/24 07:43 36.4 C L 55 L 20 97/66 L 97 04/24/24 07:35 59 L 04/24/24 03:04 36.8 C 70 18 99/65 L 94 04/24/24 01:00 88 L 04/23/24 22:41 37 C 60 18 103/69 94 04/23/24 22:00 58 L O2 Del Method O2 Del Method O2 Flow Rate 04/24/24 07:43 Room Air 04/24/24 07:35 04/24/24 03:04 Room Air 04/24/24 01:00 Room Air 100 04/23/24 22:41 Room Air 04/23/24 22:00 Laboratory Results 04/24/24 04/23/24 Range/Units 06:49 10:09 WBC 3.94 L (4.8-10.8) K/ul RBC 3.59 L (4.20-5.40) M/uL Hgb 11.8 L (12.0-16.0) g/dl Hct 35.8 L (37.0-47.0) % MCV 99.7 (80.0-100.0) fL MCH 32.9 (25.0-34.0) pg MCHC 33.0 (32.0-36.0) g/dL RDW Std Deviation 49.0 H (36.4-46.3) fL RDW Coeff of Dorothy 13.3 (11.5-14.5) % Plt Count 125 L (130-400) K/uL MPV 10.0 (9.4-12.4) fL Immature Gran % (Auto) 0.3 % Neut % (Auto) 55.0 % Lymph % (Auto) 33.5 % [place] % (Auto) 7.4 % Eos % (Auto) 3.3 % Baso % (Auto) 0.5 % Neut # (Auto) 2.17 (1.40-6.50) K/uL Lymph # (Auto) 1.32 (1.20-3.40) K/uL [place] # (Auto) 0.29 (0.11-0.59) K/uL Eos # (Auto) 0.13 (0.00-0.50) K/uL Baso # (Auto) 0.02 (0.00-0.20) K/uL Immature Gran # (Auto) 0.01 (0.01-0.20) K/uL Sodium 141 (136-145) mmol/L Potassium 3.8 (3.5-5.1) mmol/L Chloride 110 H (98-107) mmol/L Carbon Dioxide 25 (21-32) mmol/L Anion Gap 6 (3-11) BUN 8 (6-23) mg/dl Creatinine 0.51 L (0.6-1.2) mg/dl Est Cr Clr Drug Dosing 121.6 ml/min Est GFR ( Amer) 135.5 ml/min Est GFR (Non-Af Amer) 116.9 ml/min BUN/Creatinine Ratio 15.7 (10-20) Glucose 109 H (70-99(Fasting)) mg/dl Calcium 8.2 L (8.6-10.3) mg/dl Ionized Calcium 1.16 (1.12-1.32) mmol/L Phosphorus 3.9 D (2.5-4.9) mg/dl Magnesium 1.7 (1.7-2.4) mg/dl Total Bilirubin 0.4 (0.2-1.0) mg/dl AST 34 (13-39) U/L ALT 86 H (7-52) U/L Alkaline Phosphatase 65 (34-104) U/L Total Protein 5.6 L (6.0-8.3) gm/dl Albumin 3.3 L (3.4-5.0) gm/dl Globulin 2.3 L (2.5-4.0) gm/dl Albumin/Globulin Ratio 1.4 (0.9-2) ACTH Pending PG Care Time/CCT Total # of Minutes Spent Total Time Spent with Patient: Total time spent is greater than 50% in coordination of care (as documented) at patient's floor/unit and/or counseling patient: Coding Level of Care Code 84281 SUB INP/OBS CARE 2/35MIN Diagnoses Generalized abdominal pain R10.84 Abdominal location: generalized (1) Abdominal pain Abdominal location: generalized Qualified Code(s): R10.84 - Generalized abdominal pain
[2024-04-24] MEDS: ALPRAZolam 0.5 MG TABLET PO STA (10:52)
[2024-04-24 11:17] LABS: 7-Aminoclonaz, Confirm NEGATIVE ng/mL (<25); Amphetamine Urine, Confirm >15000 ng/mL (<250); Hydro-Alp Ur, GC/MS 549 ng/mL (<25); Hydroxyethylflurazepam, Conf NEGATIVE ng/mL (<50); Hydroxymidazolam Ur, GC/MS NEGATIVE ng/mL (<50); Hydroxytriazolam NEGATIVE ng/mL (<50); Lorazepam, Ur GC/MS NEGATIVE ng/mL (<50); Methamphetamine, Ur Confirm 1473 ng/mL (<250); Nordiazepam, Confirm NEGATIVE ng/mL (<50); Oxazepam Ur, GC/MS NEGATIVE ng/mL (<50); Temazepam, Confirm NEGATIVE ng/mL (<50)
[2024-04-24 11:25] VITALS: BP 100/68; RESP 21; TEMP 97.7; O2SAT 94
--- NOTE | 2024-04-24 12:19 | Discharge Summary ---
Discharge Summary Date of Service April 24, 2024 Principal Dx & Hospital Course #1 = Principal Diagnosis (1) AMS (altered mental status): Plan Ms. Slade is a 43-year-old female with past medical history significant for hypothyroidism, history of nausea/vomiting, history of colitis, GERD, history of leukopenia, history of thrombocytopenia, history of anemia, history of anxiety, history of cervical cancer presenting with abdominal pain. Patient says it has been going on for last year on the left side radiating to the ribs. CT abd/pelvis with fluid filled stool with ?enteritis. GI following: stool studies ordered; OP scope likely History of colitis in 2013, responsive to abx (cipro/flagyl) Enteritis/Colitis Intractable N/V Hematochezia Abdominal pain CT with enteritis -Treated in 2013 for similar presentation of colitis with Cipro/flagyl Reports history of polyps and ?colitis; no clear diagnosis Hgb stable at this time Continued Protonix Treated with ~2.5 days of IV cipro and Flagyl, discharged with an additional 2.5 days of oral treatment GI was consulted, appreciate recs -C-scope was planned but was discontinued due to pt's inability to tolerate prep -Per pt would like to complete outpt, more comfortable prepping outside of the hospital. Also notes she follows with [facility] and has things coordinated with getting her procedures done here to be forwarded to [facility]. -Bentyl, discharged with the same Antiemetics were given, pt tolerated compazine and dose of EMEND well Tolerated clears on day of discharge, advance diet as tolerated after discharge Close GI followup after discharge as well as with PCP. Hypotension Baseline: mid 90s-100s Pressures run borderline low Pt chronically on spironolactone 50mg for Hx of alopecia, will hold as possible cause (spironolactone is an antihypertensive) UA negative AM cortisol ordered by previous provider, low at 2.70. ACTH pending Started on Solucortef, transitioned to oral prednisone 40mg taper with close Endocrinology followup after discharge Aggressive IVF--fluid responsive Hold spironolactone at this time until PCP followup at which time BP can be reassessed Continue to monitor BP PCP followup after discharge Altered mental status Acute Toxic encephalopathy CT head normal, thought to be 2/2 benadryl +fentanyl combo s/p narcan with min approval on admission Improved significantly on discharge At baseline Elevated liver enzymes Periportal edema, liver Liver enzymes elevated CT abd/pelvis noting moderate periportal edema around the liver US liver ordered noted normal liver and suggested slight fluid overload IVF d/c PCP and GI followup Hypomagnesemia repleted as needed GERD on PPI at baseline BID Hypothyroidism TSH 0.224, normal FT4 continue home meds: levothyroxine, liothyronine RLS continue ropinirole ADHD Anxiety UDS + amphetamines/benzos in setting of methylphenidate, alprazolam Insomnia zolpidem on hold in setting of AMS Can resume on discharge Diffuse arthralgias Undergoing autoimmune work up at [place]: SONY negative, undetectable CCP/RF, Lyme negative, Immunoglobins neg CRP negative Notes For Next Care Provider Please ensure followup with Endocrinology for low AM cortisol/hypotension Please ensure followup with GI Medication Changes From Visit Ciprofloxacin 500mg BID x 2.5 days Flagyl 500mg q8h x 2.5 days Bentyl TID Prednisone 40mg taper Hold spironolactone until PCP followup in setting of low cortisol levels/hypotension Admission HPI Per Admitting Provider 43-year-old female with past medical history significant for hypothyroidism, history of nausea vomiting, history of colitis, GERD, history of leukopenia, history of thrombocytopenia, history of anemia, history of anxiety, history of cervical cancer as per records in epic comes because of abdominal pain, patient says going on for last 1 year on the left side radiating to the ribs. Seems to got worse lately. In the ER she was given IV Compazine and IV fentanyl and also given IV Benadryl 50 mg and IV Solu-Medrol 40 mg for contrast allergy for CAT scan and patient became lethargic and hypotensive. Pupils were pinpoint. She received couple dose of Narcan. Patient Still somewhat drowsy. When asked she is alert and oriented x 3. States has abdominal pain. States has on and off some chest tightness. Some on and off shortness of breath. states has headache. states has nausea. speaking very low volume and difficult to understand. Goes back to sleep. Could not get much history from the patient currently. As per ER notes patient also complained of blood clot in the stools And also seems having night sweats. Urine drug screen came positive for for methamphetamines and when asked about it patient states she is on Ritalin and denies any drug use. Past medical history. As mentioned above. Past surgical history as per the medical center. Endoscopy of bowel pouch with biopsy. Sigmoidoscopy. Laparoscopic cholecystectomy. Partial hysterectomy. Social history. Smokes half pack a day for 15 years. Alcohol social drinking as per the medical center. No drug use. Family history. Father has A-fib. Mother has MS. Admission Exam Per Admitting Provider General- Drowsy Head- atraumatic Eyes- PERRL. ENT- oropharynx dry Neck- supple, no JVD. Lungs- clear to auscultation no wheezing or crackles. Heart- regular rate and rhythm; no murmur, no gallop. Abdomen- normal bowel sounds, soft, nontender, no distension Extremities- no pretibial edema, no erythema seen Neuro- alert, oriented x 3; PERRL,; no facial palsy; no dysarthria; Discharge Exam General: Alert. No acute distress Psych: Appropriate mood and affect Neuro: No gross deficits while laying in bed HEENT: NC/AT CV: Normal s1, s2. No murmurs appreciated Resp: Breath sounds clear bilaterally, no increased effort of breathing. Abdomen: Soft, nontender, nondistended. Extremities: No edema in lower extremities bilaterally. Updated Medication List Medication Instructions Recorded Confirmed Type liothyronine 5 mcg tablet 5 mcg PO QAM 04/18/21 04/21/24 History methylphenidate HCl 20 mg tablet 20 mg PO TID 05/25/21 04/21/24 History zolpidem 10 mg tablet (Ambien) 10 mg PO HS 05/25/21 04/21/24 History linaclotide 145 mcg capsule 145 mcg PO QAM PRN IBS 07/27/21 04/21/24 History (Linzess) pantoprazole 40 mg tablet,delayed 40 mg PO BID PRN Acid Reflux 12/14/21 04/21/24 History release alprazolam 1 mg tablet 1 mg PO TID PRN Anxiety 04/26/23 04/21/24 History levothyroxine 125 mcg tablet 125 mcg PO QAM 04/26/23 04/21/24 History spironolactone 50 mg tablet 50 mg PO HS 04/26/23 04/21/24 History valacyclovir 1 gram tablet 1,000 mg PO BID 04/26/23 04/21/24 History ropinirole 1 mg tablet 1 mg PO HS 04/21/24 04/21/24 History Tylenol 04/22/24 History ciprofloxacin HCl 500 mg tablet 500 mg PO BID #5 tabs 04/24/24 Rx dicyclomine 10 mg capsule 10 mg PO TID #90 caps 04/24/24 Rx metronidazole 500 mg tablet 500 mg PO Q8H #7 tabs 04/24/24 Rx prednisone 10 mg tablet See Rx Instructions .Route 04/24/24 Rx .COMPLEX #21 tabs Hospital Stay Data Consultations 04/21/24 22:31 ED Decision to Admit Stat 04/22/24 08:00 Consult Gastroenterology Routine Procedures Performed Operation Date: 04/23/24 17:20 <No data on this case meets the specified criteria> Diagnostic Imagining Performed 04/21/24 16:41 CT abd pelvis IV con only Stat 04/22/24 01:38 CT head/brain wo con Urgent 04/24/24 US liver Routine Abdomen/Pelvis CT 04/21/24 16:41 Exam(s): CT ABDOMEN + PELVIS With Contrast IV Amt: 91ml optiray 320 EXAM: CT Abdomen and Pelvis With Intravenous Contrast CLINICAL HISTORY: Reason for exam: left upper abd pain passing blood clots per rectum. TECHNIQUE: Axial computed tomography images of the abdomen and pelvis with intravenous contrast. CTDI is 12 mGy and DLP is 585 mGy-cm. Automated exposure control was utilized for the study. A dose lowering technique was utilized adhering to the principles of ALARA. CONTRAST: Patient received 91ml optiray 320 of IV contrast COMPARISON: 06/03/2023 FINDINGS: Lung bases: Unremarkable. No mass. No consolidation. ABDOMEN: Liver: Moderate periportal edema. Gallbladder and bile ducts: Postoperative changes prior cholecystectomy. No ductal dilation. Pancreas: Unremarkable. No mass. No ductal dilation. Spleen: Splenomegaly. Adrenals: Unremarkable. No mass. Kidneys and ureters: Both kidneys opacify with and excrete contrast in a normal symmetric fashion. . Stomach and bowel: There is fluid-filled loops of small bowel within the pelvis with hyperemic mural enhancement. No obstruction. No mucosal thickening. PELVIS: Appendix: No findings to suggest acute appendicitis. Bladder: Unremarkable. No mass. Reproductive: Unremarkable as visualized. ABDOMEN and PELVIS: Intraperitoneal space: Unremarkable. No free air. No significant fluid collection. Bones/joints: No acute fracture. No dislocation. Soft tissues: See above. Vasculature: Dilatation of the main portal vein suggesting portal hypertension. Lymph nodes: Unremarkable. No enlarged lymph nodes. IMPRESSION: Fluid-filled loops of small bowel within the pelvis with hyperemic mural enhancement. Findings may is enteritis in the appropriate clinical setting. Electronically signed by: Wallace Rhodes MD 04/21/24 20:[address] 04/22/24 01:38 Exam(s): CT HEAD Without Contrast EXAM: CT Head Without Intravenous Contrast CLINICAL HISTORY: Reason for exam: AMS. TECHNIQUE: Axial computed tomography images of the head/brain without intravenous contrast. CTDI is 38.03 mGy and DLP is 547.75 mGy-cm. Automated exposure control was utilized for the study. A dose lowering technique was utilized adhering to the principles of ALARA. COMPARISON: 04/26/2023 FINDINGS: Brain: Unremarkable. No hemorrhage. No significant white matter disease. No edema. Ventricles: Unremarkable. No ventriculomegaly. Bones/joints: Unremarkable. No acute fracture. Soft tissues: Unremarkable. Sinuses: Unremarkable as visualized. No acute sinusitis. Mastoid air cells: Unremarkable as visualized. No mastoid effusion. IMPRESSION: Normal head/brain CT. Electronically signed by: Wallace Rhodes MD 04/22/24 03:14 AM KUB X-Ray 04/23/24 10:46 XR KUB/Abdomen 1 view CLINICAL HISTORY: abd pain, distention, enteritis on CT TECHNIQUE: 1 view of the abdomen was obtained. Comparison: Comparison is made to CT abdomen pelvis 04/21/2024 FINDINGS: Cholecystomy clips are seen in the right upper quadrant. The osseous structures are grossly unremarkable. The bowel gas pattern is nonobstructive. A moderate amount of stool is noted within the large bowel. IMPRESSION: Nonobstructive bowel gas pattern. ACT 112: Negative or not required by law. Electronically signed by: Jb Francisco M.D. 04/23/2024 5:44 PM Liver Ultrasound 04/24/24 00:00 ULTRASOUND RIGHT UPPER QUADRANT ABDOMEN CLINICAL HISTORY: Elevated hepatic transaminases. COMPARISON STUDY: Abdominal CT dated 04/21/2024. TECHNIQUE: Real-time, grayscale, and color flow sonography of the right upper quadrant of the abdomen was performed. Images are reviewed in the transverse and longitudinal planes. FINDINGS: Liver: The liver is top normal in size and homogeneous in echotexture. There is no intrahepatic biliary ductal dilatation. The main portal vein is patent. Gallbladder: The gallbladder is surgically absent. The common bile duct measures up to 0.2 cm in diameter. Pancreas: Visualized portions of the pancreatic head and body are normal in appearance. The splenic vein is patent. Right kidney: Survey images of the right kidney demonstrate normal size and echotexture. There is no hydronephrosis. Trace perinephric fluid is observed. Ascites: There is trace perihepatic ascites. Pleural spaces: There is a small right pleural effusion. IMPRESSION: 1. Normal sonographic appearance of liver. 2. Status post cholecystectomy. 3. A small right pleural effusion and trace perihepatic ascites suggest fluid overload ACT 112: Negative or not required by law. Electronically signed by: Chacho Chin M.D. 04/24/2024 8:02 AM Discharge Instructions Given to Patient (Per Discharging Provider) Laura, You are requesting to be discharged, stating that your symptoms have improved and you will be better able to follow up with Gastroenterology as an outpatient to have the required prep done for further evaluation. Continue to advance your diet as tolerated at home. We are discharging you home with oral antibiotics to help as well as the medication dicyclomine to help with abdominal cramps. We are also discharging you home with a prednisone taper to help with your low cortisol levels. It is very important that you follow up with your Field Support Technician about this very soon after discharge. please continue to hold your home spironolactone in this setting as it can further lower your blood pressure until you follow up with your primary care provider. Please also keep close follow up with your primary care provider after discharge. Please do not hesitate to come back to the emergency room if your symptoms worsen or return. It was a pleasure taking care of you while you were here. Total Time Total Time Spent Total Time Spent (In Minutes): 75
[2024-04-24] MEDS: FOSAPREPITANT DIMEGLUMINE 115 MG in 0.9 % SODIUM CHLORIDE 111.1667 ML IV ONE (12:29)
[2024-04-24 14:04] VITALS: PULSE 66
[2024-04-24] MEDS: DICYCLOMINE HCL 10 MG CAP PO SCH (14:18)
== END 2024-04-24 17:55 | disposition home or self-care (01) | DRG 391 ==
LOC: ED 15:57 → EDINP 04-22 01:18 → SUATTDRO 04-22 01:18 → INTOOBSV 04-22 01:18 → 2S 04-22 01:38